=== PATIENT | female | born 1945 | race Caucasian/White ===

== ENCOUNTER → 2016-10-27 | Outpatient (CLI) | payer BC ==
[~2016-10-27] MED LIST: AMOX875T PO; ASCO10003 PO; ASPI81TA28 PO; CALC-354 PO; CHOL100010 PO; CHOL20009 PO; COEN1CAP PO; LPT/40 PO; METO25TA3 PO; MISCCAP80 PO; MULT-513 PO
[2016-10-27 11:03] LABS: ALT/SGPT 28 U/L (12-78); AST/SGOT 29 U/L (15-37); BLOOD UREA NITROGEN 13 mg/dl (7-18); BUN/CREATININE RATIO 16.3 (10-20); CARBON DIOXIDE 28 mmol/L (21-32); CHLORIDE 105 mmol/L (98-107); CHOLESTEROL 144 mg/dl (0-200); CREATININE 0.82 mg/dl (0.60-1.20); GLUCOSE 89 mg/dl (70-99); POTASSIUM 4.2 mmol/L (3.5-5.1); SODIUM 141 mmol/L (136-145); TRIGLYCERIDES 60 mg/dl (0-150); VERY LOW DENSITY LIPOPROT CALC 12 mg/dl
[2016-10-27 11:04] LABS: ALB/GLOB RATIO 0.9 (0.9-2); ALKALINE PHOSPHATASE 104 U/L (45-117); CHOLESTEROL/HDL RATIO 1.7; HDL CHOLESTEROL 86 mg/dl; LDL CHOLESTEROL CALCULATED 46 mg/dl
[2016-10-27 11:30] LABS: ESTIMATED AVERAGE GLUCOSE 117 mg/dl; HA1C FLAG Normal (Normal)
[2016-10-27 12:13] LABS: CALCIUM 9.4 mg/dl (8.5-10.1)
--- NOTE | 2016-11-01 12:25 | CODING QUERY MEDICAL NECESSITY ---
SUPPORTING DIAGNOSIS NEEDED A supporting diagnosis is required for the test/procedure performed on this patient in order for us to be reimbursed by the patient's insurance. Please provide a supporting diagnosis for the following test/procedure listed below next to the test name along with your signature. *If there is no additional diagnosis for this patient that would support the following test/procedure please document that below next to the test/procedure. Test(s)/Procedure(s) that require a supporting diagnosis: * HEMOGLOBIN A1C DIAGNOSIS: Provider Signature: Date: Thank you Marly Karimi [employer] Information Management Once completed, please kindly fax back to [phone] For questions please call [phone]
== END | disposition home or self-care (01) ==
LOC: C.LABBC 07:30
PROVIDERS: ATTEND Family Medicine
DX: K25.9 Gastric ulcer, unspecified as acute or chronic, without hemorrhage or perforation (principal); E78.00 Pure hypercholesterolemia, unspecified; K21.9 Gastro-esophageal reflux disease without esophagitis; I34.1 Nonrheumatic mitral (valve) prolapse; I25.10 Atherosclerotic heart disease of native coronary artery without angina pectoris; R73.03 Prediabetes

== ENCOUNTER → 2016-11-07 | Outpatient (CLI) | payer BC ==
[~2016-11-07] MED LIST changes: -AMOX875T PO; -CHOL20009 PO
--- NOTE | 2016-11-07 15:39 | MAMMOGRAPHY REPORT ---
BILATERAL DIGITAL SCREENING MAMMOGRAM WITH CAD: 11/07/2016 CLINICAL HISTORY: Routine screening. Patient has no complaints. TECHNIQUE: Bilateral CC and MLO views were obtained. Current study was also evaluated with a Compute r Aided Detection (CAD) system. COMPARISON: Comparison is made to exams dated: 11/01/2015 mammogram, 10/21/2014 mammogram, 10/14/2013 ma mmogram, 04/02/2012 mammogram, 01/31/2011 mammogram - [facility], and 02/02/2009. BREAST COMPOSITION: There are scattered areas of fibroglandular density in both breasts. FINDINGS: The parenchymal pattern is unchanged. No developing mass, architectural distortion or clus ter of suspicious microcalcifications is seen in either breast. IMPRESSION: ACR BI-RADS CATEGORY 2: BENIGN There is no mammographic evidence of malignancy. A 1 year screening mammogram is recommended. The pa tient will receive written notification of the results. Approximately 10% of breast cancers are not detected with mammography. A negative mammographic report should not delay biopsy if a clinically suggestive mass is present. Trudy Pereira M.D. ay/:11/07/2016 14:38:41 Manager Utilization Management: Ambreen Beltran RT(R)(M), [facility] letter sent: Normal 1/2 BI-RADS Code: ACR BI-RADS Category 2: Benign
== END | disposition home or self-care (01) ==
LOC: C.MAMM 11:17
PROVIDERS: ATTEND Obstetrics & Gynecology
DX: Z12.31 Encounter for screening mammogram for malignant neoplasm of breast (principal)

== ENCOUNTER → 2016-11-16 | Outpatient (CLI) | payer BC ==
[~2016-11-16] MED LIST changes: +AMOX875T PO; +CHOL20009 PO
== END | disposition home or self-care (01) ==
LOC: C.PAPS 09:44
PROVIDERS: ATTEND Obstetrics & Gynecology
DX: Z01.419 Encounter for gynecological examination (general) (routine) without abnormal findings (principal)

== ENCOUNTER 2017-01-15 13:14 | Emergency (ER) | payer BC ==
[~2017-01-15] VITALS: Ht 157.5 cm; Wt 62.7 kg
[~2017-01-15 13:14] MED LIST changes: -AMOX875T PO; -CHOL20009 PO
[2017-01-15] MEDS ORDERED: CHOL20009 PO (13:24)
[2017-01-15 13:30] VITALS: TEMP 36.6; Ht 157.5 cm; Wt 62.7 kg
[2017-01-15] MEDS ORDERED: AMOX875T PO (13:55)
--- NOTE | 2017-01-15 13:57 | EMERGENCY ROOM VISIT NOTE ---
History First contact with patient: 13:35 Chief Complaint: BITE Stated Complaint: DOG BITE- LEFT HAND History of Present Illness The patient is a 71 year old female who presents to the Emergency Room with complaints of a dog bite on her left hand. The patient states that she was taking a walk and a stranger's dog bit her on the left hand. She is unsure if the dog's rabies vaccinations are up-to-date, but states that the dog was acting normally and was not aggressive or acting unusually. She rates her discomfort a 4/10. He believes her tetanus status is up-to-date. She denies any numbness or weakness of the hand. Review of Systems A complete 10 point review of systems was reviewed with the patient with pertinent positives and negatives as per history of present illness. All else were negative. Social History Smoking Status: Never Smoker Current/Historical Medications Scheduled Amoxicillin & Pot Clavulanate (Augmentin 875-125 mg), 1 TAB PO BID Ascorbic Acid (Vitamin C), 1 TAB PO DAILY Aspirin (Aspirin Ec), 81 MG PO DAILY Atorvastatin (Lipitor), 40 MG PO DAILY Calcium Carbonate-Cholecalcife (Caltrate 600+D), 1 TAB PO DAILY Cholecalciferol (Vitamin D), 2,000 UNITS PO DAILY Metoprolol Succinate (Toprol Xl), 12.5 MG PO DAILY Multivitamins/Minerals (Mvi With Minerals), 1 TAB PO DAILY Probiotic Product (Probiotic), 1 CAP PO DAILY Miscellaneous Medications Coenzyme Q10 (Ubidecarenone) (Co Q10), 0.5 CAP PO Physical Exam Vital Signs Date Time Temp Pulse Resp B/P (MAP) Pulse Ox O2 Delivery O2 Flow Rate FiO2 01/15/17 14:21 68 18 120/75 97 01/15/17 13:30 36.6 74 18 14/73 96 Room Air Physical Exam VITALS: Vitals are noted on the nurse's note and reviewed by myself. Vital signs stable. GENERAL: This is a 71-year-old female, in no acute distress, nondiaphoretic, well-developed well-nourished. SKIN: There is a superficial flap-like laceration to the dorsal aspect of the left hand, just proximal to the fifth MCP. There is no active bleeding. There is no significant surrounding ecchymosis. MUSCULOSKELETAL: Full range of motion of the hand. [employer] strength 5/5. NEURO: Patient was alert and oriented to person place and time. Normal sensation to light and sharp touch. Medical Decision & Procedures Medications Administered Medications (Trade) Dose Ordered Sig/[place] Route Start Time Stop Time Status Last Admin Dose Admin Amoxicillin/ Clavulanate Potassium (Augmentin 875MG Home Pack) 1 homepack UD ONCE PO 01/15/17 14:00 01/15/17 14:01 DC 01/15/17 14:16 1 HOMEPACK Medical Decision The patient was evaluated as above. She sustained a dog bite to the left hand. She believes that her tetanus shot is up-to-date. She will call her primary care provider tomorrow to confirm this. The patient is not concerned about rabies exposure. Benefit/risk of rabies vaccinations were discussed with the patient and she declined at this time. She will be placed on Augmentin to prevent infection. Bacitracin and a bandage were applied to the wound. Conservative measures were discussed with the patient. She was encouraged to return here for any evidence of infection. She verbalized understanding of my assessment and treatment plan and was discharged home in good condition. The patient was independently evaluated by Dr. Mancilla, ED attending physician , who agreed with my assessment and treatment plan. Medication Reconcilliation Current Medication List: was personally reviewed by me Blood Pressure Screening Patient's blood pressure: Normal blood pressure Impression Primary Impression: Dog bite Departure Information Dispostion Home / Self-Care Condition GOOD Prescriptions Amoxicillin & Pot Clavulanate (Augmentin 875-125 mg) 1 Tab Tab 1 TAB PO BID for 7 Days, #14 TAB Prov: Marlys Batista ., GUTIERREZ 01/15/17 Referrals Lesley Faith DO (PCP) Patient Instructions My [facility] Additional Instructions You were prescribed Augmentin to be taken twice daily as prescribed. This is an antibiotic. All antibiotics have the potential to cause diarrhea. Stop this medication and contact a medical provider if you were to develop any significant adverse side effects including: wheezing, shortness of breath, passing out, vomiting, or a diffuse rash. Always take antibiotics as directed and COMPLETE the ENTIRE course regardless of the improvement of your symptoms. Proper wound care is essential for adequate wound healing and infection prevention. You can shower and clean the wound with soap and water. Do not scour over the wound, pat dry with a towel. Do not submerse the wound (i.e. bathe or dish wash) until the wound has fully healed. You can use an antibiotic ointment with a dressing over the wound for the next 3-4 days. After this time you may leave the wound dry and open to the air. For pain control, you can use the following [id number] medicines (if >12 yo): - Regular strength (325mg/tab) Tylenol (acetaminophen) 2 tabs every 4-6 hours as needed. Do not exceed 12 tablets in a 24 hour period. Avoid taking more than 4 grams (4000 mg) of Tylenol per day. This includes any other sources of acetaminophen you may take on a regular basis. - Regular strength (200 mg/tab) Advil (ibuprofen) 1-2 tabs every 4-6 hours as needed. Do not exceed a dose of 3200 mg per day. Contact your PCP to make sure your tetanus vaccination is up to date. Return to the emergency department for any signs of infection including worsening redness, worsening swelling, puslike drainage from the wound or fevers. Problem Qualifiers Primary Impression: Dog bite Encounter type: initial encounter Qualified Codes: W54.0XXA - Bitten by dog , initial encounter
[2017-01-15] MEDS ORDERED: AMOXICIL/CLAVU 875MG HOME PACK PO ONE (14:00)
--- NOTE | 2017-01-15 14:00 | EMERGENCY ROOM VISIT NOTE ---
ED Visit Note First contact with patient: 13:35 I have seen and examined this patient with Marlys Batista and generally agree with the treatment plan as discussed. Current/Historical Medications Scheduled Amoxicillin & Pot Clavulanate (Augmentin 875-125 mg), 1 TAB PO BID Ascorbic Acid (Vitamin C), 1 TAB PO DAILY Aspirin (Aspirin Ec), 81 MG PO DAILY Atorvastatin (Lipitor), 40 MG PO DAILY Calcium Carbonate-Cholecalcife (Caltrate 600+D), 1 TAB PO DAILY Cholecalciferol (Vitamin D), 2,000 UNITS PO DAILY Metoprolol Succinate (Toprol Xl), 12.5 MG PO DAILY Multivitamins/Minerals (Mvi With Minerals), 1 TAB PO DAILY Probiotic Product (Probiotic), 1 CAP PO DAILY Miscellaneous Medications Coenzyme Q10 (Ubidecarenone) (Co Q10), 0.5 CAP PO Allergies Coded Allergies: Epinephrine (Verified Allergy, Mild, 01/15/17) Vital Signs Date Time Temp Pulse Resp B/P (MAP) Pulse Ox O2 Delivery O2 Flow Rate FiO2 01/15/17 13:30 36.6 74 18 14/73 96 Room Air Departure Information Dispostion Home / Self-Care Condition GOOD Prescriptions Amoxicillin & Pot Clavulanate (Augmentin 875-125 mg) 1 Tab Tab 1 TAB PO BID for 7 Days, #14 TAB Prov: Marlys Batista ., GUTIERREZ 01/15/17 Referrals Lesley Faith DO (PCP) Patient Instructions My [facility] Additional Instructions You were prescribed Augmentin to be taken twice daily as prescribed. This is an antibiotic. All antibiotics have the potential to cause diarrhea. Stop this medication and contact a medical provider if you were to develop any significant adverse side effects including: wheezing, shortness of breath, passing out, vomiting, or a diffuse rash. Always take antibiotics as directed and COMPLETE the ENTIRE course regardless of the improvement of your symptoms. Proper wound care is essential for adequate wound healing and infection prevention. You can shower and clean the wound with soap and water. Do not scour over the wound, pat dry with a towel. Do not submerse the wound (i.e. bathe or dish wash) until the wound has fully healed. You can use an antibiotic ointment with a dressing over the wound for the next 3-4 days. After this time you may leave the wound dry and open to the air. For pain control, you can use the following slee-tzu-naoorex medicines (if >12 yo): - Regular strength (325mg/tab) Tylenol (acetaminophen) 2 tabs every 4-6 hours as needed. Do not exceed 12 tablets in a 24 hour period. Avoid taking more than 4 grams (4000 mg) of Tylenol per day. This includes any other sources of acetaminophen you may take on a regular basis. - Regular strength (200 mg/tab) Advil (ibuprofen) 1-2 tabs every 4-6 hours as needed. Do not exceed a dose of 3200 mg per day. Contact your PCP to make sure your tetanus vaccination is up to date. Return to the emergency department for any signs of infection including worsening redness, worsening swelling, puslike drainage from the wound or fevers.
[2017-01-15 14:21] VITALS: BP 120/75; PULSE 68; O2SAT 97
== END 2017-01-15 14:21 | disposition home or self-care (01) ==
LOC: C.EDB 13:16 → C.EDD 14:21
DX: S61.452A Open bite of left hand, initial encounter (principal); W54.0XXA Bitten by dog, initial encounter; Y92.89 Other specified places as the place of occurrence of the external cause; Z79.82 Long term (current) use of aspirin; Z79.899 Other long term (current) drug therapy

== ENCOUNTER → 2017-04-16 | Outpatient (CLI) | payer BC ==
[~2017-04-16] MED LIST changes: -CHOL100010 PO; +CHOL20009 PO
[2017-04-16 11:19] LABS: BASO ABS # 0.05 K/uL (0-0.2); COMPLETE YES; EOS % 1.9 %; HEMATOCRIT 44.7 % (37-47); IG% 0.2 %; LYMPH % 48.7 %; LYMPH ABS # 2.53 K/uL (1.2-3.4); MEAN CELL VOLUME 102.3 fL (80-100); MEAN CORPUSCULAR HEMOGLOBIN 33.2 pg (25-34); MEAN CORPUSCULAR HGB CONC 32.4 g/dl (32-36); MEAN PLATELET VOLUME 11.7 fL (7.4-10.4); MONO % 8.5 %; NEUT % 39.7 %; PLATELET COUNT 203 K/uL (130-400); RED BLOOD COUNT 4.37 M/uL (4.2-5.4); WHITE BLOOD COUNT 5.19 K/uL (4.8-10.8)
[2017-04-16 11:42] LABS: ALT/SGPT 27 U/L (12-78); BLOOD UREA NITROGEN 19 mg/dl (7-18); BUN/CREATININE RATIO 21.2 (10-20); CALCIUM 9.4 mg/dl (8.5-10.1); CARBON DIOXIDE 30 mmol/L (21-32); CHLORIDE 102 mmol/L (98-107); CHOLESTEROL 189 mg/dl (0-200); CREATININE 0.91 mg/dl (0.60-1.20); GLUCOSE 94 mg/dl (70-99); POTASSIUM 3.8 mmol/L (3.5-5.1); SODIUM 139 mmol/L (136-145)
[2017-04-16 11:45] LABS: ALB/GLOB RATIO 1.1 (0.9-2); ALKALINE PHOSPHATASE 110 U/L (45-117); AST/SGOT 24 U/L (15-37); CHOLESTEROL/HDL RATIO 2.1; HDL CHOLESTEROL 88 mg/dl; LDL CHOLESTEROL CALCULATED 83 mg/dl; TRIGLYCERIDES 91 mg/dl (0-150); VERY LOW DENSITY LIPOPROT CALC 18 mg/dl
[2017-04-16 12:08] LABS: RATIO 7.4 mcg/mg (0-30.0)
[2017-04-16 12:52] LABS: ESTIMATED AVERAGE GLUCOSE 117 mg/dl; HA1C FLAG Normal (Normal)
== END | disposition home or self-care (01) ==
LOC: C.LABBC 08:14
PROVIDERS: ATTEND Nurse Practitioner Family
DX: E78.00 Pure hypercholesterolemia, unspecified (principal); K21.9 Gastro-esophageal reflux disease without esophagitis; R73.03 Prediabetes; I25.10 Atherosclerotic heart disease of native coronary artery without angina pectoris

== ENCOUNTER 2021-01-04 10:16 | Inpatient (IN) ==
[2021-01-04] MEDS ORDERED: SODIUM CHLORIDE 0.9% 1000ML 1,000 ML IV ONE (10:48)
[2021-01-04] MEDS ORDERED: ONDANSETRON INJ 2 MG/ML 2 ML VIAL IV STA (10:48)
--- NOTE | 2021-01-04 10:52 | Emergency Department Note ---
Impression & Plan Diverticulitis, Abdominal pain, Abscess ED Provider Note NAME: BERT RICHMOND AGE: 75 SEX: F : 1945 ARRIVES VIA: Walk-In INFORMANT: Patient ED PROVIDER(S): Jarod Martinez DO CHIEF COMPLAINT: abdominal pain HPI: Patient is a 75-year-old female who presents the ER for periumbilical abdominal pain. Associate with this has been diarrhea. Symptoms started about 4 days ago. She is keeping down liquids but is having profuse diarrhea. Pain is about a 3 out of 10. Initially started in the lower pelvic region and now is periumbilical. She has not been around any body that has been sick recently. She has had 2 episodes of diarrhea today as it is improved. Normally she goes about 5-10 times. She denies any dysuria, urgency, or frequency. Pain is normally infraumbilically but recently moved up to be periumbilically. She discussed with her PCP and was referred in for further evaluation. ROS: See above HPI for pertinent positives & negatives. A total of 10 systems reviewed and were otherwise negative. PAST MEDICAL HISTORY:See Below PAST SURGICAL HISTORY:See Below FAMILY HISTORY:See Below SOCIAL HISTORY:See Below HOME MEDICATIONS:See Below ALLERGIES:See Below VITALS:See Below PHYSICAL EXAMINATION: GENERAL: Sitting up in bed, alert, well appearing, well nourished, no distress, non-toxic EYE EXAM: normal conjunctiva. PERRL and EOM's grossly intact. OROPHARYNX: mask in place LUNGS: Clear to auscultation. Normal chest wall mechanics HEART: no murmurs, S1 normal and S2 normal ABDOMEN: abdomen soft, mild tenderness periumbilically, normo-active bowel sounds, no masses, no rebound or guarding. UPPER EXTREMITIES: upper extremities are grossly normal. LOWER EXTREMITIES: No pitting edema. NEURO EXAM: Normal sensorium, cranial nerves II-XII grossly intact, normal speech, no gross weakness of arms, no gross weakness of legs. MEDICAL DECISION MAKING: Patient is a 75-year-old female who presents the ER for abdominal pain for the past 4 days. IV was established blood work was obtained. Labs show mild l eukocytosis 11.9 thousand. No significant anemia. BMP with LFTs bilirubin and lipase was unremarkable. UA was contaminated with multiple epithelial cells. Covid was negative. CT abdomen pelvis shows severe diverticulitis with intramural abscess and some peritonitis likely with a small amount of fluid. No perforation. Discussed with Madina from surgery and admitted to the hospitalist for further work-up Dr. Hammonds. Patient was given fluids and Zosyn while in the ER. Triage Nursing notes reviewed. Limited review of prior medical records performed Vital Signs: reviewed and remarkable for no significant abnormalities Differential diagnosis: Differential diagnoses includes but is not limited to gastritis, peptic ulcer disease, GERD, gallbladder disease, pancreatitis, small bowel obstruction, acute coronary syndrome, pericarditis, ischemic bowel, irritable bowel disease, irritable bowel syndrome, appendicitis, diverticulitis, malignancy, hernia, urinary tract infection, torsion, /ectopic (if female), perforation, trauma, infectious. ER treatment provided: See below Diagnostics interpreted by me: ECG: none Cardiac Monitoring: An order was placed for continuous cardiac monitoring. The monitor shows a rate of 72 with sinus rhythm. Laboratory studies: As stated above and show below. Imaging studies: CT abdomen pelvis as discussed above Consultation(s): Consultations as discussed above both Dr. Olmos service CLARI Luke and Dr. Hammonds from the hospital service Procedures: none Critical Care: None Past Med/Surg History Medical History (Updated 01/04/21 @ 16:11 by Jarod Martinez DO) Adhesions of flexor and extensor tendons Left foot flexor digiti quinti Atrophic urethritis Basal cell carcinoma Cardiomyopathy, nonischemic Coronary artery disease Eustachian tube dysfunction Gastric ulcer Gastro-esophageal reflux Hypercholesterolemia Mitral valve prolapse MRSA (methicillin resistant Staphylococcus aureus) Past myocardial infarction PAT (paroxysmal atrial tachycardia) Peptic ulcer Postmenopausal atrophic vaginitis Postmenopausal osteoporosis Prediabetes Premature ventricular contractions Seborrheic keratosis Situational anxiety Solar lentigo Squamous cell carcinoma skin Surgical History History of tonsillectomy and adenoidectomy Family History Father , age 54 Myocardial infarction Cardiac disorder Stroke Diabetes Stomach cancer Mother Alzheimer disease Cardiac disorder Stroke Diabetes Breast cancer Stomach cancer Grandfather (Maternal) Cardiac disorder Stroke Stomach cancer Grandmother (Paternal) Cardiac disorder Stroke Stomach cancer Grandfather (Paternal) Cardiac disorder Stroke Denies family history of Ovarian cancer Prostate cancer Colorectal cancer Social History Smoking Status: Former smoker Age Started Using Tobacco: 16; Age Quit Using Tobacco: 29; packs per day: 0.5; Number of Years Since Quit: 30; Second Hand Exposure: No; Hx Alcohol Use: Yes Alcohol type: wine Hx Substance Use: No Preferred Language: Lao Visual Impairment: No Limitations Hearing Ability: Normal marital status: Current Living Situation: Spouse current occupational status: retired Feels Safe at Home: Yes Childhood Exposure to Second-Hand Smoke: Yes Dental Care, Regularly: Yes Physical Activity Frequency: 3-4 Times per Week Seatbelt Use: always Sunscreen Use: Yes Allergies Allergies Allergy/AdvReac Type Severity Reaction Status Date / Time epinephrine Allergy Mild Verified 01/04/21 13:06 lidocaine Allergy Verified 01/04/21 13:06 Home Meds Home Medications Medication Instructions Recorded Confirmed aspirin 81 mg tablet,delayed 81 mg PO HS #30 tab 02/02/19 01/04/21 release (Aspirin Low Dose) atorvastatin 20 mg tablet (Lipitor) 20 mg PO HS 01/04/21 01/04/21 budesonide 0.5 mg/2 mL suspension 0.5 mg INHALATION UD 01/04/21 01/04/21 for nebulization (Pulmicort) cholecalciferol (vitamin D3) 50 50 mcg PO BID 01/04/21 01/04/21 mcg (2,000 unit) capsule (Vitamin D3) fluvoxamine 50 mg tablet 50 mg PO BID 01/04/21 01/04/21 ivermectin 3 mg tablet (Stromectol) 12 mg PO WK 01/04/21 01/04/21 metoprolol succinate 50 mg 50 mg PO HS 01/04/21 01/04/21 tablet,extended release 24 hr (Toprol XL) multivitamin (Super Multivitamin) 1 tab PO QAM 01/04/21 01/04/21 nitroglycerin 0.4 mg sublingual 0.4 mg SUBLINGUAL UD 01/04/21 01/04/21 tablet (Nitrostat) Results & Data (ED) Vital Signs Vital Signs - 24 hr 01/04/21 10:37 01/04/21 10:40 01/04/21 11:02 Temperature 36.1 C L Temperature Source Temporal Artery Scan Pulse Rate 86 76 73 Pulse Rate [Apical] Pulse Rate from SpO2 Sensor 74 Pulse Rhythm Regular Regular Pulse Rhythm [Apical] Pulse Strength Normal Respiratory Rate 20 15 20 Respiratory Effort / Characteristics Non-Labored Spontaneous Respiratory Depth Normal Respiratory Pattern Regular Blood Pressure 140/80 161/82 H Blood Pressure [Left Arm] Blood Pressure Mean 100 108 Blood Pressure Mean [Left Arm] Blood Pressure Position Sitting Pulse Oximetry 97 96 98 Oxygen Delivery Method Room Air Room Air Sepsis Recent Fever Within 48 Hours No Sepsis New/Unexplained Change in Mental Status N/A Sepsis Action Taken by Nursing No Action Required 01/04/21 11:27 Temperature Temperature Source Pulse Rate Pulse Rate [Apical] 75 Pulse Rate from SpO2 Sensor Pulse Rhythm Pulse Rhythm [Apical] Regular Pulse Strength Respiratory Rate 16 Respiratory Effort / Characteristics Non-Labored Respiratory Depth Normal Respiratory Pattern Blood Pressure Blood Pressure [Left Arm] 161/82 H Blood Pressure Mean Blood Pressure Mean [Left Arm] 108 Blood Pressure Position Pulse Oximetry 97 Oxygen Delivery Method Room Air Sepsis Recent Fever Within 48 Hours Sepsis New/Unexplained Change in Mental Status Sepsis Action Taken by Nursing Laboratory Data Result diagrams: 01/04/21 11:15 01/04/21 11:15 Lab Results 01/04/21 01/04/21 01/04/21 Range/Units 11:12 11:15 11:15 WBC 11.97 H (4.8-10.8) K/uL RBC 4.28 (4.2-5.4) M/uL Hgb 14.7 (12.0-16.0) g/dL Hct 43.3 (37-47) % MCV 101.2 H (80-100) fL MCH 34.3 H (25-34) pg MCHC 33.9 (32-36) g/dL RDW Std Deviation 46.3 (36.4-46.3) fL RDW Coeff of Rita 12.5 (11.5-14.5) % Plt Count 219 (130-400) K/uL MPV 11.4 H (7.4-10.4) fL Immature Gran % (Auto) 0.3 % Neut % (Auto) 79.8 % Lymph % (Auto) 12.5 % [place] % (Auto) 7.0 % Eos % (Auto) 0.1 % Baso % (Auto) 0.3 % Neut # (Auto) 9.56 H (1.4-6.5) K/uL Lymph # (Auto) 1.50 (1.2-3.4) K/uL [place] # (Auto) 0.84 H (0.11-0.59) K/uL Eos # (Auto) 0.01 (0-0.5) K/uL Baso # (Auto) 0.03 (0-0.2) K/uL Immature Gran # (Auto) 0.03 H (0.00-0.02) K/uL Sodium 138 (136-145) mmol/L Potassium 3.6 (3.5-5.1) mmol/L Chloride 104 (98-107) mmol/L Carbon Dioxide 28 (21-32) mmol/L Anion Gap 6.0 (3-11) BUN 9 (7-18) mg/dl Creatinine 0.72 (0.6-1.2) mg/dl Est Cr Clr Drug Dosing 58.3 ml/min Est GFR ( Amer) 94.3 ml/min Est GFR (Non-Af Amer) 81.3 ml/min BUN/Creatinine Ratio 12.7 (10-20) Glucose 120 H (70-99) mg/dl Calcium 9.7 (8.5-10.1) mg/dl Total Bilirubin 0.7 (0.2-1) mg/dl AST 28 (15-37) U/L ALT 30 (12-78) U/L Alkaline Phosphatase 104 (45-117) U/L Total Protein 8.5 H (6.4-8.2) gm/dl Albumin 3.8 (3.4-5.0) gm/dl Globulin 4.7 H (2.5-4.0) gm/dl Albumin/Globulin Ratio 0.8 L (0.9-2) Lipase 210 (73-393) U/L Urine Color Yellow Urine Appearance Clear (Clear) Urine pH 6.5 (4.5-7.5) Ur Specific [place] 1.017 (1.000-1.030) Urine Protein Negative (Negative) Urine Glucose (UA) Negative (Negative) Urine Ketones Trace H (Negative) Urine Blood Trace H (Negative) Urine Nitrite Negative (Negative) Urine Bilirubin Negative (Negative) Urine Urobilinogen Negative (Negative) Ur Leukocyte Esterase Trace H (Negative) Urine WBC (Auto) 1-5 (0-5) /hpf Urine RBC (Auto) 5-10 H (0-4) /hpf U Hyaline Cast (Auto) 1-5 (0-5) /lpf U Epithel Cells (Auto) >30 H (0-5) /lpf Urine Bacteria (Auto) Negative (Negative) COVID-19 Eval Order SARS-CoV-2 (PCR) (Negative) 01/04/21 01/04/21 Range/Units 12:00 12:00 WBC (4.8-10.8) K/uL RBC (4.2-5.4) M/uL Hgb (12.0-16.0) g/dL Hct (37-47) % MCV (80-100) fL MCH (25-34) pg MCHC (32-36) g/dL RDW Std Deviation (36.4-46.3) fL RDW Coeff of Rita (11.5-14.5) % Plt Count (130-400) K/uL MPV (7.4-10.4) fL Immature Gran % (Auto) % Neut % (Auto) % Lymph % (Auto) % [place] % (Auto) % Eos % (Auto) % Baso % (Auto) % Neut # (Auto) (1.4-6.5) K/uL Lymph # (Auto) (1.2-3.4) K/uL [place] # (Auto) (0.11-0.59) K/uL Eos # (Auto) (0-0.5) K/uL Baso # (Auto) (0-0.2) K/uL Immature Gran # (Auto) (0.00-0.02) K/uL Sodium (136-145) mmol/L Potassium (3.5-5.1) mmol/L Chloride (98-107) mmol/L Carbon Dioxide (21-32) mmol/L Anion Gap (3-11) BUN (7-18) mg/dl Creatinine (0.6-1.2) mg/dl Est Cr Clr Drug Dosing ml/min Est GFR ( Amer) ml/min Est GFR (Non-Af Amer) ml/min BUN/Creatinine Ratio (10-20) Glucose (70-99) mg/dl Calcium (8.5-10.1) mg/dl Total Bilirubin (0.2-1) mg/dl AST (15-37) U/L ALT (12-78) U/L Alkaline Phosphatase (45-117) U/L Total Protein (6.4-8.2) gm/dl Albumin (3.4-5.0) gm/dl Globulin (2.5-4.0) gm/dl Albumin/Globulin Ratio (0.9-2) Lipase (73-393) U/L Urine Color Urine Appearance (Clear) Urine pH (4.5-7.5) Ur Specific [place] (1.000-1.030) Urine Protein (Negative) Urine Glucose (UA) (Negative) Urine Ketones (Negative) Urine Blood (Negative) Urine Nitrite (Negative) Urine Bilirubin (Negative) Urine Urobilinogen (Negative) Ur Leukocyte Esterase (Negative) Urine WBC (Auto) (0-5) /hpf Urine RBC (Auto) (0-4) /hpf U Hyaline Cast (Auto) (0-5) /lpf U Epithel Cells (Auto) (0-5) /lpf Urine Bacteria (Auto) (Negative) COVID-19 Eval Order Covid19 at [facility] SARS-CoV-2 (PCR) NEGATIVE (Negative) Administered Medications Acetaminophen (Acetaminophen 325 Mg Tab) 650 mg PO Q6 PRN PRN Reason: pain/fever Stop: 02/03/21 14:44 Last Admin: 01/04/21 14:55 Dose: 650 mg Documented by: [id number] Discontinued Medications Sodium Chloride (Nss 1000ml) 1,000 mls @ 999 mls/hr IV .Q1H1M ONE Stop: 01/04/21 11:48 Last Infusion: 01/04/21 13:32 Dose: 0 mls/hr Documented by: [id number] Admin: 01/04/21 11:26 Dose: 999 mls/hr Documented by: [id number] Piperacillin Sod/Tazobactam Sod (Zosyn) 4.5 gm in 120 mls @ 240 mls/hr IV NOW ONE Stop: 01/04/21 13:20 Last Infusion: 01/04/21 14:23 Dose: 0 mls/hr Documented by: [id number] Admin: 01/04/21 13:20 Dose: 240 mls/hr Documented by: [id number] Ioversol (Optiray 320 100ml) 94 ml IV ONCE ONE Stop: 01/04/21 12:21 Last Admin: 01/04/21 12:20 Dose: 94 ml Documented by: [id number] Ondansetron HCl (Ondansetron Inj 2 Mg/Ml 2 Ml Vial) 4 mg IV NOW STA Stop: 01/04/21 10:49 Last Admin: 01/04/21 11:26 Dose: 4 mg Documented by: [id number] Imaging Data Radiologist's Impression: Abdomen/Pelvis CT 01/04/21 10:48 CT SCAN OF THE ABDOMEN AND PELVIS WITH IV CONTRAST CLINICAL HISTORY: Generalized/umbilical abdominal pain. COMPARISON STUDY: Abdominal CT dated 10/19/2006. TECHNIQUE: Following the IV administration of 94 cc of Optiray 320, CT scan of the abdomen and pelvis is performed from the lung bases to the proximal femora. Images are reviewed in the axial, sagittal, and coronal planes. IV contrast was administered without complication. A dose lowering technique was utilized adhering to the principles of ALARA. CT DOSE: 528.71 mGycm FINDINGS: Lung bases: The heart is normal in size and without pericardial effusion. There are small bilateral fat-containing Bochdalek hernias. The lung bases are otherwise clear. Liver: The contrast-enhanced liver is normal in size, contour, and attenuation. There is no intrahepatic biliary ductal dilatation. The hepatic veins and portal veins are patent. Hepatic cysts measure up to 2.4 cm have been present dating back to 2006. Gallbladder: Unremarkable. Spleen: Normal in size and attenuation. Pancreas: Unremarkable. Adrenal glands: Unremarkable. Kidneys: The contrast enhanced kidneys are normal in size and without hydronephrosis. The kidneys enhance symmetrically. Scattered subcentimeter cortical hypodensities likely represent cysts but are too small for definitive characterization. Abdominal vasculature: The abdominal aorta is normal in course and caliber no ting moderate atherosclerotic calcification. Bowel: There is moderate to advanced sigmoid diverticulosis. There is wall thickening with pericolonic inflammation and fluid involving the proximal sigmoid consistent with acute diverticulitis. A small intramural abscess on imag e #275 measures up to 12 mm. No bowel obstruction is seen. The appendix is well-visualized and normal. Peritoneum: There is trace fluid in the paracolic gutters and pelvis. No intraperitoneal free air is identified. There is a small fat-containing umbilical hernia. Infiltration throughout the mesentery. Lymphadenopathy: None. Pelvic viscera: The bladder, uterus, and adnexa are normal as visualized. Skeletal structures: The skeletal structures are osteopenic. There is lumbosacral spondylosis and scoliosis. Sclerotic change is noted in the pubic symphysis. No lytic or blastic lesions are seen. IMPRESSION: 1. Findings are consistent with severe acute diverticulitis of the sigmoid colon. 2. No intraperitoneal free air is identified. 3. A 12 mm intramural abscess is noted within the wall of the sigmoid. 4. Infiltration throughout the mesentery may represent peritonitis. Trace free fluid is noted in the paracolic gutters and pelvis. 5. Additional findings as above. ACT 112: Negative or not required by law. Electronically signed by: Ye Hugo M.D. 01/04/2021 12:44 PM Discharge Plan Visit Data Chief Complaint: Abdominal Pain Stated Complaint: BOWEL ISSUES ED Provider: Jarod Martienz Discharge Problem: Diverticulitis, Abdominal pain, Abscess Patient Disposition: Admitted As Inpatient Discharge Instructions Interventions: ED Discharge Assessment Last Done: 01/04/21 15:41 Discharge Problem: Abdominal pain Qualifiers: Abdominal location: unspecified location Qualified Code(s): R10.9 - Unspecified abdominal pain
[2021-01-04 11:31] LABS: Appearance Urine Clear (Clear); Bacteria Urine Automated Negative (Negative); Bilirubin Urine Negative (Negative); Blood Urine Trace (Negative); Color Urine Yellow; Epithelial Cell Urine Auto >30 /lpf (0-5); Glucose Urine UA Negative (Negative); Ketones Urine Trace (Negative); Leukocyte Esterase Urine Trace (Negative); Nitrite Urine Negative (Negative); Protein Urine Negative (Negative); Specific Gravity Urine 1.017 (1.000-1.030); Urobilinogen Urine Negative (Negative); pH Urine 6.5 (4.5-7.5)
[2021-01-04 11:31] LABS: Basophils # (auto) 0.03 K/uL (0-0.2); Basophils % (auto) 0.3 %; Eosinophils # (auto) 0.01 K/uL (0-0.5); Eosinophils % (auto) 0.1 %; Hematocrit (blood only) 43.3 % (37-47); Hemoglobin 14.7 g/dL (12.0-16.0); Immature Granulocytes # (auto) 0.03 K/uL (0.00-0.02); Immature Granulocytes % (auto) 0.3 %; Lymphocytes % (auto) 12.5 %; Mean Corpuscular Hemoglobin 34.3 pg (25-34); Mean Corpuscular Hgb Conc 33.9 g/dL (32-36); Mean Corpuscular Volume 101.2 fL (80-100); Mean Platelet Volume 11.4 fL (7.4-10.4); Monocytes # (auto) 0.84 K/uL (0.11-0.59); Neutrophils # (auto) 9.56 K/uL (1.4-6.5); Neutrophils % (auto) 79.8 %; Platelet Count 219 K/uL (130-400); RDW Coefficient of Variation 12.5 % (11.5-14.5); RDW Standard Deviation 46.3 fL (36.4-46.3); Red Blood Count 4.28 M/uL (4.2-5.4); White Blood Count 11.97 K/uL (4.8-10.8)
[2021-01-04 11:53] LABS: Albumin Level 3.8 gm/dl (3.4-5.0); BUN Creatinine Ratio 12.7 (10-20); Calcium 9.7 mg/dl (8.5-10.1); Creatinine Clr Calc Pharmacy 58.3 ml/min; Est GFR (African American) 94.3 ml/min; Est GFR (Non-African American) 81.3 ml/min; Potassium 3.6 mmol/L (3.5-5.1)
[2021-01-04 11:56] LABS: Albumin Globulin Ratio 0.8 (0.9-2); Bilirubin,Total 0.7 mg/dl (0.2-1); Globulin 4.7 gm/dl (2.5-4.0); Total Protein 8.5 gm/dl (6.4-8.2)
[2021-01-04] MEDS ORDERED: OPTIRAY 320 100ml IV ONE (12:20)
--- NOTE | 2021-01-04 12:46 | CT Scan Report ---
CT SCAN OF THE ABDOMEN AND PELVIS WITH IV CONTRAST CLINICAL HISTORY: Generalized/umbilical abdominal pain. COMPARISON STUDY: Abdominal CT dated 10/19/2006. TECHNIQUE: Following the IV administration of 94 cc of Optiray 320, CT scan of the abdomen and pelvi s is performed from the lung bases to the proximal femora. Images are reviewed in the axial, sagittal , and coronal planes. IV contrast was administered without complication. A dose lowering technique wa s utilized adhering to the principles of ALARA. CT DOSE: 528.71 mGycm FINDINGS: Lung bases: The heart is normal in size and without pericardial effusion. There are small bilateral f at-containing Bochdalek hernias. The lung bases are otherwise clear. Liver: The contrast-enhanced liver is normal in size, contour, and attenuation. There is no intrahepa tic biliary ductal dilatation. The hepatic veins and portal veins are patent. Hepatic cysts measure u p to 2.4 cm have been present dating back to 2006. Gallbladder: Unremarkable. Spleen: Normal in size and attenuation. Pancreas: Unremarkable. Adrenal glands: Unremarkable. Kidneys: The contrast enhanced kidneys are normal in size and without hydronephrosis. The kidneys enh ance symmetrically. Scattered subcentimeter cortical hypodensities likely represent cysts but are too small for definitive characterization. Abdominal vasculature: The abdominal aorta is normal in course and caliber noting moderate atheroscle rotic calcification. Bowel: There is moderate to advanced sigmoid diverticulosis. There is wall thickening with pericoloni c inflammation and fluid involving the proximal sigmoid consistent with acute diverticulitis. A small intramural abscess on image #275 measures up to 12 mm. No bowel obstruction is seen. The appendix is well-visualized and normal. Peritoneum: There is trace fluid in the paracolic gutters and pelvis. No intraperitoneal free air is identified. There is a small fat-containing umbilical hernia. Infiltration throughout the mesentery. Lymphadenopathy: None. Pelvic viscera: The bladder, uterus, and adnexa are normal as visualized. Skeletal structures: The skeletal structures are osteopenic. There is lumbosacral spondylosis and sco liosis. Sclerotic change is noted in the pubic symphysis. No lytic or blastic lesions are seen. IMPRESSION: 1. Findings are consistent with severe acute diverticulitis of the sigmoid colon. 2. No intraperitoneal free air is identified. 3. A 12 mm intramural abscess is noted within the wall of the sigmoid. 4. Infiltration throughout the mesentery may represent peritonitis. Trace free fluid is noted in the paracolic gutters and pelvis. 5. Additional findings as above. ACT 112: Negative or not required by law. Electronically signed by: Ye Hugo M.D. 01/04/2021 12:44 PM
[2021-01-04] MEDS ORDERED: PIPERACILL/TAZOBAC CONSULT ACTIVE PRN ×2 (12:51→16:08)
[2021-01-04] MEDS ORDERED: PIPERACILLIN/TAZOBACTAM 4.5 GM/120 ML BAG IV ONE (12:51)
--- NOTE | 2021-01-04 14:32 | Surgery Consultation ---
Date of Consultation January 04, 2021 Assessment & Plan (1) Diverticulitis of intestine with abscess: 75 year-old female with 4 day history of lower abdominal pain and diarrhea. CT scan showing sigmoid diverticulitis with intramural abscess measuring 12 mm. No pneumoperitoneum and abdomen is soft, nondistended, no rigidity or peritonitis but tender in the LLQ on palpation. Plan: Conservative measures: NPO, IV Fluids, IV abx, pain management as needed, antiemetics will need prolonged course of abx 14 day total given abscess will need colonoscopy in 6 -[address] Olmos who agrees with above History of Present Illness Reason for Consultation: Sigmoid diverticulitis with abscess Requesting Physician: JANETTE Mishra Attending Physician: Edward Hammonds MD History of Present Illness Itzel is a pleasant 75 year-old female who presented to ED with lower abdominal pain and diarrhea x 4 days. States pain started in low abdomen above pelvic bone and has spread up to around her belly button. Diarrhea started 4 days ago with 10 loose stools a day. No blood in stools. Denies of any fever, chills, nausea, vomiting at home. No history of prior diverticulitis or c.diff infection. Thought maybe she had COVID again and possible food poisoning. Also has history of recurrent UTI and pain was similar to that. Has never had a colonoscopy. ER work-up included labs which showed mild leukocytosis of 11K. CT scan of abdomen and pelvis showing severe sigmoid diverticulitis with intraluminal abscess measuring 12 mm. There is associated mesenteric inflammation but no pneumoperitoneum. Allergies Allergy/AdvReac Type Severity Reaction Status Date / Time epinephrine Allergy Mild Verified 01/04/21 13:06 lidocaine Allergy Verified 01/04/21 13:06 Home Medications Medication Instructions Recorded Confirmed Type aspirin 81 mg tablet,delayed 81 mg PO HS #30 tab 02/02/19 01/04/21 History release (Aspirin Low Dose) atorvastatin 20 mg tablet (Lipitor) 20 mg PO HS 01/04/21 01/04/21 History budesonide 0.5 mg/2 mL suspension 0.5 mg INHALATION UD 01/04/21 01/04/21 History for nebulization (Pulmicort) cholecalciferol (vitamin D3) 50 50 mcg PO BID 01/04/21 01/04/21 History mcg (2,000 unit) capsule (Vitamin D3) fluvoxamine 50 mg tablet 50 mg PO BID 01/04/21 01/04/21 History ivermectin 3 mg tablet (Stromectol) 12 mg PO WK 01/04/21 01/04/21 History metoprolol succinate 50 mg 50 mg PO HS 01/04/21 01/04/21 History tablet,extended release 24 hr (Toprol XL) multivitamin (Super Multivitamin) 1 tab PO QAM 01/04/21 01/04/21 History nitroglycerin 0.4 mg sublingual 0.4 mg SUBLINGUAL UD 01/04/21 01/04/21 History tablet (Nitrostat) Patient History Medical History (Updated 01/04/21 @ 14:32 by Marly Rice PA-C) Adhesions of flexor and extensor tendons Left foot flexor digiti quinti Atrophic urethritis Basal cell carcinoma Cardiomyopathy, nonischemic Coronary artery disease Eustachian tube dysfunction Gastric ulcer Gastro-esophageal reflux Hypercholesterolemia Mitral valve prolapse MRSA (methicillin resistant Staphylococcus aureus) Past myocardial infarction PAT (paroxysmal atrial tachycardia) Peptic ulcer Postmenopausal atrophic vaginitis Postmenopausal osteoporosis Prediabetes Premature ventricular contractions Seborrheic keratosis Situational anxiety Solar lentigo Squamous cell carcinoma skin Surgical History History of tonsillectomy and adenoidectomy Family History Father , age 54 Myocardial infarction Cardiac disorder Stroke Diabetes Stomach cancer Mother Alzheimer disease Cardiac disorder Stroke Diabetes Breast cancer Stomach cancer Grandfather (Maternal) Cardiac disorder Stroke Stomach cancer Grandmother (Paternal) Cardiac disorder Stroke Stomach cancer Grandfather (Paternal) Cardiac disorder Stroke Denies family history of Ovarian cancer Prostate cancer Colorectal cancer Social History Smoking Status: Former smoker Age Started Using Tobacco: 16; Age Quit Using Tobacco: 29; packs per day: 0.5; Number of Years Since Quit: 30; Second Hand Exposure: No; Hx Alcohol Use: Yes Alcohol type: wine Hx Substance Use: No Preferred Language: Sinhala Visual Impairment: No Limitations Hearing Ability: Normal marital status: Current Living Situation: Spouse current occupational status: retired Feels Safe at Home: Yes Childhood Exposure to Second-Hand Smoke: Yes Dental Care, Regularly: Yes Physical Activity Frequency: 3-4 Times per Week Seatbelt Use: always Sunscreen Use: Yes Review of Systems Review of Systems: All systems reviewed & are unremarkable except as noted in HPI & below Physical Exam Constitutional: WD/WN, vitals as above no acute distress and not ill appearing Respiratory: normal respiratory effort, lungs clear to auscultation Cardiovascular: RRR, no murmur, no edema Gastrointestinal (Abdomen): Inspection/Auscultation: abdomen normal to inspection and normal bowel sounds; abdomen not distended Percussion/Palpation: + abdomen tender (LLQ) and abdomen soft; no guarding and abdomen not rigid Skin: no rashes, warm and dry Psychiatric: A+Ox3, euthymic affect Results & Data ([facility]) Vital Signs (Past 12 Hours) Vital Signs Temp Pulse Pulse Resp BP BP Pulse Ox 01/04/21 11:27 75 16 161/82 H 97 01/04/21 11:02 73 20 161/82 H 98 01/04/21 10:40 76 15 96 01/04/21 10:37 36.1 C L 86 20 140/80 97 Laboratory Results 01/04/21 01/04/21 01/04/21 Range/Units 12:00 12:00 11:15 WBC (4.8-10.8) K/uL RBC (4.2-5.4) M/uL Hgb (12.0-16.0) g/dL Hct (37-47) % MCV (80-100) fL MCH (25-34) pg MCHC (32-36) g/dL RDW Std Deviation (36.4-46.3) fL RDW Coeff of Rita (11.5-14.5) % Plt Count (130-400) K/uL MPV (7.4-10.4) fL Immature Gran % (Auto) % Neut % (Auto) % Lymph % (Auto) % [place]ws[place] % (Auto) % Eos % (Auto) % Baso % (Auto) % Neut # (Auto) (1.4-6.5) K/uL Lymph # (Auto) (1.2-3.4) K/uL Owsley # (Auto) (0.11-0.59) K/uL Eos # (Auto) (0-0.5) K/uL Baso # (Auto) (0-0.2) K/uL Immature Gran # (Auto) (0.00-0.02) K/uL Sodium 138 (136-145) mmol/L Potassium 3.6 (3.5-5.1) mmol/L Chloride 104 (98-107) mmol/L Carbon Dioxide 28 (21-32) mmol/L Anion Gap 6.0 (3-11) BUN 9 (7-18) mg/dl Creatinine 0.72 (0.6-1.2) mg/dl Est Cr Clr Drug Dosing 58.3 ml/min Est GFR ( Amer) 94.3 ml/min Est GFR (Non-Af Amer) 81.3 ml/min BUN/Creatinine Ratio 12.7 (10-20) Glucose 120 H (70-99) mg/dl Calcium 9.7 (8.5-10.1) mg/dl Total Bilirubin 0.7 (0.2-1) mg/dl AST 28 (15-37) U/L ALT 30 (12-78) U/L Alkaline Phosphatase 104 (45-117) U/L Total Protein 8.5 H (6.4-8.2) gm/dl Albumin 3.8 (3.4-5.0) gm/dl Globulin 4.7 H (2.5-4.0) gm/dl Albumin/Globulin Ratio 0.8 L (0.9-2) Lipase 210 (73-393) U/L Urine Color Urine Appearance (Clear) Urine pH (4.5-7.5) Ur Specific Seaton (1.000-1.030) Urine Protein (Negative) Urine Glucose (UA) (Negative) Urine Ketones (Negative) Urine Blood (Negative) Urine Nitrite (Negative) Urine Bilirubin (Negative) Urine Urobilinogen (Negative) Ur Leukocyte Esterase (Negative) Urine WBC (Auto) (0-5) /hpf Urine RBC (Auto) (0-4) /hpf U Hyaline Cast (Auto) (0-5) /lpf U Epithel Cells (Auto) (0-5) /lpf Urine Bacteria (Auto) (Negative) COVID-19 Eval Order Covid19 at [facility] SARS-CoV-2 (PCR) NEGATIVE (Negative) 08/24/21 08/24/21 Range/Units 11:15 11:12 WBC 11.97 H (4.8-10.8) K/uL RBC 4.28 (4.2-5.4) M/uL Hgb 14.7 (12.0-16.0) g/dL Hct 43.3 (37-47) % MCV 101.2 H (80-100) fL MCH 34.3 H (25-34) pg MCHC 33.9 (32-36) g/dL RDW Std Deviation 46.3 (36.4-46.3) fL RDW Coeff of Rita 12.5 (11.5-14.5) % Plt Count 219 (130-400) K/uL MPV 11.4 H (7.4-10.4) fL Immature Gran % (Auto) 0.3 % Neut % (Auto) 79.8 % Lymph % (Auto) 12.5 % Owsley % (Auto) 7.0 % Eos % (Auto) 0.1 % Baso % (Auto) 0.3 % Neut # (Auto) 9.56 H (1.4-6.5) K/uL Lymph # (Auto) 1.50 (1.2-3.4) K/uL Owsley # (Auto) 0.84 H (0.11-0.59) K/uL Eos # (Auto) 0.01 (0-0.5) K/uL Baso # (Auto) 0.03 (0-0.2) K/uL Immature Gran # (Auto) 0.03 H (0.00-0.02) K/uL Sodium (136-145) mmol/L Potassium (3.5-5.1) mmol/L Chloride (98-107) mmol/L Carbon Dioxide (21-32) mmol/L Anion Gap (3-11) BUN (7-18) mg/dl Creatinine (0.6-1.2) mg/dl Est Cr Clr Drug Dosing ml/min Est GFR ( Amer) ml/min Est GFR (Non-Af Amer) ml/min BUN/Creatinine Ratio (10-20) Glucose (70-99) mg/dl Calcium (8.5-10.1) mg/dl Total Bilirubin (0.2-1) mg/dl AST (15-37) U/L ALT (12-78) U/L Alkaline Phosphatase (45-117) U/L Total Protein (6.4-8.2) gm/dl Albumin (3.4-5.0) gm/dl Globulin (2.5-4.0) gm/dl Albumin/Globulin Ratio (0.9-2) Lipase (73-393) U/L Urine Color Yellow Urine Appearance Clear (Clear) Urine pH 6.5 (4.5-7.5) Ur Specific Seaton 1.017 (1.000-1.030) Urine Protein Negative (Negative) Urine Glucose (UA) Negative (Negative) Urine Ketones Trace H (Negative) Urine Blood Trace H (Negative) Urine Nitrite Negative (Negative) Urine Bilirubin Negative (Negative) Urine Urobilinogen Negative (Negative) Ur Leukocyte Esterase Trace H (Negative) Urine WBC (Auto) 1-5 (0-5) /hpf Urine RBC (Auto) 5-10 H (0-4) /hpf U Hyaline Cast (Auto) 1-5 (0-5) /lpf U Epithel Cells (Auto) >30 H (0-5) /lpf Urine Bacteria (Auto) Negative (Negative) COVID-19 Eval Order SARS-CoV-2 (PCR) (Negative) Diagnostic Findings CT SCAN OF THE ABDOMEN AND PELVIS WITH IV CONTRAST CLINICAL HISTORY: Generalized/umbilical abdominal pain. COMPARISON STUDY: Abdominal CT dated 10/19/2006. TECHNIQUE: Following the IV administration of 94 cc of Optiray 320, CT scan of the abdomen and pelvis is performed from the lung bases to the proximal femora. Images are reviewed in the axial, sagittal, and coronal planes. IV contrast was administered without complication. A dose lowering technique was utilized adhering to the principles of ALARA. CT DOSE: 528.71 mGycm FINDINGS: Lung bases: The heart is normal in size and without pericardial effusion. There are small bilateral fat-containing Bochdalek hernias. The lung bases are otherwise clear. Liver: The contrast-enhanced liver is normal in size, contour, and attenuation. There is no intrahepatic biliary ductal dilatation. The hepatic veins and portal veins are patent. Hepatic cysts measure up to 2.4 cm have been present dating back to 2006. Gallbladder: Unremarkable. Spleen: Normal in size and attenuation. Pancreas: Unremarkable. Adrenal glands: Unremarkable. Kidneys: The contrast enhanced kidneys are normal in size and without hydronephrosis. The kidneys enhance symmetrically. Scattered subcentimeter cortical hypodensities likely represent cysts but are too small for definitive characterization. Abdominal vasculature: The abdominal aorta is normal in course and caliber noting moderate atherosclerotic calcification. Bowel: There is moderate to advanced sigmoid diverticulosis. There is wall thickening with pericolonic inflammation and fluid involving the proximal sigmoid consistent with acute diverticulitis. A small intramural abscess on image #275 measures up to 12 mm. No bowel obstruction is seen. The appendix is well-visualized and normal. Peritoneum: There is trace fluid in the paracolic gutters and pelvis. No intraperitoneal free air is identified. There is a small fat-containing umbilical hernia. Infiltration throughout the mesentery. Lymphadenopathy: None. Pelvic viscera: The bladder, uterus, and adnexa are normal as visualized. Skeletal structures: The skeletal structures are osteopenic. There is lumbosacral spondylosis and scoliosis. Sclerotic change is noted in the pubic symphysis. No lytic or blastic lesions are seen. IMPRESSION: 1. Findings are consistent with severe acute diverticulitis of the sigmoid colon. 2. No intraperitoneal free air is identified. 3. A 12 mm intramural abscess is noted within the wall of the sigmoid. 4. Infiltration throughout the mesentery may represent peritonitis. Trace free fluid is noted in the paracolic gutters and pelvis. 5. Additional findings as above.
--- NOTE | 2021-01-04 14:33 | History & Physical Report ---
Date of Service January 04, 2021 Assessment & Plan (1) Diverticulitis of intestine with abscess: Plan: Surgery consulted- appreciate assistance monitoring clinical course - Zosyn- 3.375 GM IV q8 - NPO except meds and sips - LR overnight - Consider follow up imaging ~48 hours (2) Cardiomyopathy, nonischemic: Plan: Remote history of Takotsubo cardiomyopathy. Per cardiology note from 11/01/2020, EF had normalized by 2017. Presently appears euvolemic on exam. - continue metoprolol succ 50 mg PO qd - continue asa daily - continue atorvastatin 20 mg po qhs (3) Coronary artery disease: Plan: Non-obstructive by cath- 50% LAD stenosis - as above - Continue ASA- can likely continue through perioperative course if were needed (4) Gastro-esophageal reflux: Plan: Protonix while NPO (5) Hypercholesterolemia: Plan: As above (6) Mitral valve prolapse: Plan: Appears euvolemic on exam - as above with BB - non limiting symptoms (7) PAT (paroxysmal atrial tachycardia): Plan: Controlled while on BB, History of Present Illness Primary Care Provider: Satya Montilla, III, 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 Patient reports to the EMD today for 4 days of abdominal pain, fatigue, and diarrhea. She has recently started Ivermectin, Zinc, and increased her Vitamin D for COVID prevention. Patient states that originally started with sharp stabbing pain to lower midline abdomen that just didn't improve. She has noticed increase in mucousy, mostly water diarrhea since that time and no blood. She endorses eating some corn over the weekend and some crackers. She endorses that she has also had some mild fevers and chills that also accompanied this. She denies any other symptoms, and no radiation of the pain. She has not noticed any change to her urinary symptoms or pattern. In the EMD she had routine labs done, ECG, and CT scan of her abdomen. CT scan of her abdomen did show a 12mm intraluminal abscess of the sigmoid colon, without free air, but with trace free fluid in the gutters and pelvis. Surgery was notified by the EMD and will continue to follow her through her admission. Patient was started on Zosyn in the EMD and will continue. Patient will be admitted for IV antibiotics, serial abdominal exams, monitoring of her symptoms, and surgical consultation as above. Will hold her COVID prophylaxis medications to include her Ivermectin, fluvoxamine, will contiinue her budesonide and will add albuterol for any dyspnea/wheeze- unsure of her need for theese. Allergies Allergy/AdvReac Type Severity Reaction Status Date / Time epinephrine Allergy Mild Verified 01/04/21 13:06 lidocaine Allergy Verified 01/04/21 13:06 Home Medications Medication Instructions Recorded Confirmed Type aspirin 81 mg tablet,delayed 81 mg PO HS #30 tab 02/02/19 01/04/21 History release (Aspirin Low Dose) atorvastatin 20 mg tablet (Lipitor) 20 mg PO HS 01/04/21 01/04/21 History budesonide 0.5 mg/2 mL suspension 0.5 mg INHALATION BID 01/04/21 01/04/21 History for nebulization (Pulmicort) cholecalciferol (vitamin D3) 50 50 mcg PO BID 01/04/21 01/04/21 History mcg (2,000 unit) capsule (Vitamin D3) fluvoxamine 50 mg tablet 50 mg PO BID 01/04/21 01/04/21 History ivermectin 3 mg tablet (Stromectol) 12 mg PO WK 01/04/21 01/04/21 History metoprolol succinate 50 mg 50 mg PO HS 01/04/21 01/04/21 History tablet,extended release 24 hr (Toprol XL) multivitamin (Super Multivitamin) 1 tab PO QAM 01/04/21 01/04/21 History nitroglycerin 0.4 mg sublingual 0.4 mg SUBLINGUAL UD 01/04/21 01/04/21 History tablet (Nitrostat) Past Med/Surg History Medical History Adhesions of flexor and extensor tendons Left foot flexor digiti quinti Atrophic urethritis Basal cell carcinoma Cardiomyopathy, nonischemic Coronary artery disease Eustachian tube dysfunction Gastric ulcer Gastro-esophageal reflux Hypercholesterolemia Mitral valve prolapse MRSA (methicillin resistant Staphylococcus aureus) Past myocardial infarction PAT (paroxysmal atrial tachycardia) Peptic ulcer Postmenopausal atrophic vaginitis Postmenopausal osteoporosis Prediabetes Premature ventricular contractions Seborrheic keratosis Situational anxiety Solar lentigo Squamous cell carcinoma skin Surgical History History of tonsillectomy and adenoidectomy Family History Father , age 54 Myocardial infarction Cardiac disorder Stroke Diabetes Stomach cancer Mother Alzheimer disease Cardiac disorder Stroke Diabetes Breast cancer Stomach cancer Grandfather (Maternal) Cardiac disorder Stroke Stomach cancer Grandmother (Paternal) Cardiac disorder Stroke Stomach cancer Grandfather (Paternal) Cardiac disorder Stroke Denies family history of Ovarian cancer Prostate cancer Colorectal cancer Social History Smoking Status: Former smoker Age Started Using Tobacco: 16; Age Quit Using Tobacco: 29; packs per day: 0.5; Number of Years Since Quit: 30; Second Hand Exposure: No; Do You Dip or Chew Tobacco: No; Tobacco Cessation Education Requested by Patient: No Hx Alcohol Use: Yes Alcohol type: wine Hx Substance Use: No Preferred Language: Hungarian Communication Ability: Effective Visual Impairment: No Limitations Hearing Ability: Normal Recreation Adviser Required: No Beliefs That Will Affect Care: None marital status: Current Living Situation: Spouse current occupational status: retired Other Information That Helps Us Care for You: No Feels Safe at Home: Yes Safety Concerns: Feels Safe At This Time Childhood Exposure to Second-Hand Smoke: Yes Dental Care, Regularly: Yes Physical Activity Frequency: 3-4 Times per Week Seatbelt Use: always Sunscreen Use: Yes Assistive Devices: Glasses Review of Systems Review of Systems: REVIEW OF SYSTEMS: Constitutional: No fever, sweats or chills Eyes: No diplopia, no worsening or blurred vision ENT: normal hearing, no trouble swallowing Respiratory: No cough, sputum, dyspnea at rest or on exertion Cardiovascular: No chest pain, tightness or palpitations Abdomen: (+) pain, nausea, diarrhea, NO vomiting or constipation Musculoskeletal: No joint pain, calf pain, swelling Neurologic: No weakness, numbness/tingling, or balance problems Psychiatric: No anxiety or depression Skin: No rash or itch Physical Exam Physical Exam: PHYSICAL EXAM: General: awake, alert, no apparent distress Head: Normocephalic, atraumatic ENT: PERRL, EOMI, no pharyngeal exudate, mucous membranes moist Neuro: AAO x 3, speech clear and appropriate, strength intact bilaterally 5/5, sensation intact and equal all extremities and dermatomes, no pronator drift Chest: equal rise and fall of the chest, no accessory muscle use, no heaves or thrills, Clear to auscultation, on room air, Cardiac: Regular rate and rhythm, telemetry reviewed-NSR skin warm dry, cap refill <3 seconds, peripheral pulses +2 no JVD, no murmur, no JVD, no edema GI: NABS x 4 quadrants, soft, tender to palpation lower quad midline, no rebound, guarding or tenderness : Spontaneously voiding, no pain, no CVA tenderness, Extremities: Normal inspection, no peripheral edema or erythema, calfs nontender to palpation Psych: Normal mood and affect Skin: no rash or erythema Results & Data Results & Data ([facility]) Vital Signs (Past 12 Hours) Vital Signs Temp Pulse Pulse Resp BP BP Pulse Ox 01/04/21 11:27 75 16 161/82 H 97 01/04/21 11:02 73 20 161/82 H 98 01/04/21 10:40 76 15 96 01/04/21 10:37 36.1 C L 86 20 140/80 97 Laboratory Results Abnormal lab results 01/04/21 01/04/21 01/04/21 Range/Units 11:12 11:15 11:15 WBC 11.97 H (4.8-10.8) K/uL MCV 101.2 H (80-100) fL MCH 34.3 H (25-34) pg MPV 11.4 H (7.4-10.4) fL Neut # (Auto) 9.56 H (1.4-6.5) K/uL [place] # (Auto) 0.84 H (0.11-0.59) K/uL Immature Gran # (Auto) 0.03 H (0.00-0.02) K/uL Glucose 120 H (70-99) mg/dl C-Reactive Protein (0-0.29) mg/dl Total Protein 8.5 H (6.4-8.2) gm/dl Globulin 4.7 H (2.5-4.0) gm/dl Albumin/Globulin Ratio 0.8 L (0.9-2) Urine Ketones Trace H (Negative) Urine Blood Trace H (Negative) Ur Leukocyte Esterase Trace H (Negative) Urine RBC (Auto) 5-10 H (0-4) /hpf U Epithel Cells (Auto) >30 H (0-5) /lpf 01/04/21 Range/Units 16:13 WBC (4.8-10.8) K/uL MCV (80-100) fL MCH (25-34) pg MPV (7.4-10.4) fL Neut # (Auto) (1.4-6.5) K/uL [place] # (Auto) (0.11-0.59) K/uL Immature Gran # (Auto) (0.00-0.02) K/uL Glucose (70-99) mg/dl C-Reactive Protein 4.08 H (0-0.29) mg/dl Total Protein (6.4-8.2) gm/dl Globulin (2.5-4.0) gm/dl Albumin/Globulin Ratio (0.9-2) Urine Ketones (Negative) Urine Blood (Negative) Ur Leukocyte Esterase (Negative) Urine RBC (Auto) (0-4) /hpf U Epithel Cells (Auto) (0-5) /lpf Diagnostic Findings Abdomen/Pelvis CT 01/04/21 10:48 CT SCAN OF THE ABDOMEN AND PELVIS WITH IV CONTRAST CLINICAL HISTORY: Generalized/umbilical abdominal pain. COMPARISON STUDY: Abdominal CT dated 10/19/2006. TECHNIQUE: Following the IV administration of 94 cc of Optiray 320, CT scan of the abdomen and pelvis is performed from the lung bases to the proximal femora. Images are reviewed in the axial, sagittal, and coronal planes. IV contrast was administered without complication. A dose lowering technique was utilized adhering to the principles of ALARA. CT DOSE: 528.71 mGycm FINDINGS: Lung bases: The heart is normal in size and without pericardial effusion. There are small bilateral fat-containing Bochdalek hernias. The lung bases are otherwise clear. Liver: The contrast-enhanced liver is normal in size, contour, and attenuation. There is no intrahepatic biliary ductal dilatation. The hepatic veins and portal veins are patent. Hepatic cysts measure up to 2.4 cm have been present dating back to 2006. Gallbladder: Unremarkable. Spleen: Normal in size and attenuation. Pancreas: Unremarkable. Adrenal glands: Unremarkable. Kidneys: The contrast enhanced kidneys are normal in size and without hydronephrosis. The kidneys enhance symmetrically. Scattered subcentimeter cortical hypodensities likely represent cysts but are too small for definitive characterization. Abdominal vasculature: The abdominal aorta is normal in course and caliber noting moderate atherosclerotic calcification. Bowel: There is moderate to advanced sigmoid diverticulosis. There is wall thickening with pericolonic inflammation and fluid involving the proximal sigmoid consistent with acute diverticulitis. A small intramural abscess on image #275 measures up to 12 mm. No bowel obstruction is seen. The appendix is well-visualized and normal. Peritoneum: There is trace fluid in the paracolic gutters and pelvis. No intraperitoneal free air is identified. There is a small fat-containing umbilical hernia. Infiltration throughout the mesentery. Lymphadenopathy: None. Pelvic viscera: The bladder, uterus, and adnexa are normal as visualized. Skeletal structures: The skeletal structures are osteopenic. There is lumbosacral spondylosis and scoliosis. Sclerotic change is noted in the pubic symphysis. No lytic or blastic lesions are seen. IMPRESSION: 1. Findings are consistent with severe acute diverticulitis of the sigmoid colon. 2. No intraperitoneal free air is identified. 3. A 12 mm intramural abscess is noted within the wall of the sigmoid. 4. Infiltration throughout the mesentery may represent peritonitis. Trace free fluid is noted in the paracolic gutters and pelvis. 5. Additional findings as above. ACT 112: Negative or not required by law. Electronically signed by: Ye Hugo M.D. 01/04/2021 12:44 PM Medications Administered Acetaminophen (Acetaminophen 325 Mg Tab) 650 mg PO Q6 PRN PRN Reason: pain/fever Stop: 02/03/21 14:44 Last Admin: 01/04/21 14:55 Dose: 650 mg Documented by: [id number] Discontinued Medications Sodium Chloride (Nss 1000ml) 1,000 mls @ 999 mls/hr IV .Q1H1M ONE Stop: 01/04/21 11:48 Last Infusion: 01/04/21 13:32 Dose: 0 mls/hr Documented by: [id number] Admin: 01/04/21 11:26 Dose: 999 mls/hr Documented by: [id number] Piperacillin Sod/Tazobactam Sod (Zosyn) 4.5 gm in 120 mls @ 240 mls/hr IV NOW ONE Stop: 01/04/21 13:20 Last Infusion: 01/04/21 14:23 Dose: 0 mls/hr Documented by: [id number] Admin: 01/04/21 13:20 Dose: 240 mls/hr Documented by: [id number] Ioversol (Optiray 320 100ml) 94 ml IV ONCE ONE Stop: 01/04/21 12:21 Last Admin: 01/04/21 12:20 Dose: 94 ml Documented by: [id number] Ondansetron HCl (Ondansetron Inj 2 Mg/Ml 2 Ml Vial) 4 mg IV NOW STA Stop: 01/04/21 10:49 Last Admin: 01/04/21 11:26 Dose: 4 mg Documented by: [id number] ECG Additional Comments: ordered on admission - pending during this documentation Code Status & VTE Plan Code Status CODE: FULL VTE: SCD's, ambulation, Heparin 5000 sub q q8 Supervising Physician Co-Signing Physician Notes I supervised JANETTE Mishra on this admission. I interviewed and examined the patient independently of him. The plan is as written in his note except for any following changes/exceptions: None 75yo F w/ hx of CAD and Takasubo cardiomyopathy (with normalized EF) who presents with diverticulitis with small abscess. CT a/p also indicates some small concern for peritonitis, though her clinical exam is not consistent as she has relatively mild tenderness, no rebound or guarding, and appears comfortable and clinically stable. - Surgery following - IV Abx for now; reassess frequently and consider repeat imaging PG Care Time/CCT Total # of Minutes Spent Total Time Spent with Patient: Total time spent is greater than 50% in coordination of care (as documented) at patient's floor/unit and/or counseling patient: Coding Level of Care Code 74982 Initial Inpt Care Lvl 3 Diagnoses Diverticulitis of intestine with abscess K57.80 Cardiomyopathy, nonischemic I42.8 Coronary artery disease I25.10 Associated angina: without angina Coronary Disease-Associated Artery/Lesion type: [place] artery [place] vs. transplanted heart: [place] heart Gastro-esophageal reflux K21.9 Esophagitis presence: without esophagitis Hypercholesterolemia E78.00 Mitral valve prolapse I34.1 PAT (paroxysmal atrial tachycardia) I47.1 (1) Coronary artery disease Associated angina: without angina Coronary Disease-Associated Artery/Lesion type: [place] artery [place] vs. transplanted heart: [place] heart Qualified Code(s): I25.10 - Atherosclerotic heart disease of [place] coronary artery without angina pectoris (2) Gastro-esophageal reflux Esophagitis presence: without esophagitis Qualified Code(s): K21.9 - Gastro- esophageal reflux disease without esophagitis
[2021-01-04] MEDS ORDERED: ACETAMINOPHEN 325 MG TAB PO STA (14:45)
[2021-01-04] MEDS: ACETAMINOPHEN 325 MG TAB PO PRN (14:55)
[2021-01-04] MEDS ORDERED: NITROGLYCERIN SL 0.4 MG/TAB TAB SL SCH (16:08)
[2021-01-04] MEDS ORDERED: ALBUTEROL HFA 8 GM INHALER INH PRN (17:17)
[2021-01-04] MEDS: LACTATED RINGER'S 1,000 ML IV SCH (17:30)
[2021-01-04] MEDS: BUDESONIDE 0.5 MG/2 ML VIAL (PULMICORT) INH SCH (18:59)
[2021-01-04] MEDS: PIPERACILLIN/TAZOBACTAM 3.375 GM in DEXTROSE 5% 100 ML IV SCH (19:25)
[2021-01-04] MEDS: ATORVASTATIN 20 MG TAB PO SCH (19:27)
[2021-01-04] MEDS: ASPIRIN 81 MG ECTAB PO SCH (19:27)
[2021-01-04] MEDS: METOPROLOL SUCC 50MG EXT REL TAB PO SCH (19:27)
[2021-01-04] MEDS: CHOLECALCIFEROL 1,000 UNITS 25 MCG TAB PO SCH (19:28)
[2021-01-04] MEDS ORDERED: MELATONIN 3 MG TAB PO PRN (20:40)
[2021-01-04] MEDS: HEPARIN SOD 5,000 UNIT/0.5 ML VIAL SQ SCH ×2 (22:37→22:40)
[2021-01-05] MEDS: PIPERACILLIN/TAZOBACTAM 3.375 GM in DEXTROSE 5% 100 ML IV SCH ×3 (03:42→20:37)
[2021-01-05] MEDS ORDERED: ONDANSETRON INJ 2 MG/ML 2 ML VIAL IV PRN (03:44)
[2021-01-05] MEDS: HEPARIN SOD 5,000 UNIT/0.5 ML VIAL SQ SCH ×3 (03:49→22:03)
[2021-01-05] MEDS: LACTATED RINGER'S 1,000 ML IV SCH ×2 (05:46→16:57)
[2021-01-05] MEDS: BUDESONIDE 0.5 MG/2 ML VIAL (PULMICORT) INH SCH ×2 (06:03→07:14)
[2021-01-05 07:52] LABS: Basophils # (auto) 0.03 K/uL (0-0.2); Basophils % (auto) 0.4 %; Eosinophils # (auto) 0.11 K/uL (0-0.5); Eosinophils % (auto) 1.5 %; Hematocrit (blood only) 40.8 % (37-47); Hemoglobin 13.7 g/dL (12.0-16.0); Immature Granulocytes # (auto) 0.01 K/uL (0.00-0.02); Immature Granulocytes % (auto) 0.1 %; Lymphocytes # (auto) 2.27 K/uL (1.2-3.4); Lymphocytes % (auto) 31.1 %; Mean Corpuscular Hemoglobin 33.7 pg (25-34); Mean Corpuscular Hgb Conc 33.6 g/dL (32-36); Mean Corpuscular Volume 100.2 fL (80-100); Mean Platelet Volume 11.6 fL (7.4-10.4); Monocytes # (auto) 0.36 K/uL (0.11-0.59); Monocytes % (auto) 4.9 %; Neutrophils # (auto) 4.51 K/uL (1.4-6.5); Platelet Count 199 K/uL (130-400); RDW Coefficient of Variation 12.8 % (11.5-14.5); RDW Standard Deviation 46.7 fL (36.4-46.3); Red Blood Count 4.07 M/uL (4.2-5.4); White Blood Count 7.29 K/uL (4.8-10.8)
[2021-01-05 08:22] LABS: BUN Creatinine Ratio 13.2 (10-20); Calcium 9.4 mg/dl (8.5-10.1); Creatinine Clr Calc Pharmacy 61.9 ml/min; Est GFR (African American) 98.5 ml/min; Magnesium 1.8 mg/dl (1.8-2.4); Potassium 3.6 mmol/L (3.5-5.1)
--- NOTE | 2021-01-05 09:01 | Electrocardiogram Report ---
Test Reason : Blood Pressure : / mmHG Vent. Rate : 068 BPM Atrial Rate : 068 BPM P-R Int : 126 ms QRS Dur : 076 ms QT Int : 412 ms P-R-T Axes : 043 018 031 degrees QTc Int : 438 ms Normal sinus rhythm Normal ECG When compared with ECG of 26-MAR-2010 10:36, No significant change was found Confirmed by Zachary Alva ([id number]) on 01/05/2021 9:00:36 AM Referred By: Satya Montilla Confirmed By:Zachary Alva
[2021-01-05] MEDS: CHOLECALCIFEROL 1,000 UNITS 25 MCG TAB PO SCH ×2 (09:17→20:30)
--- NOTE | 2021-01-05 09:51 | Surgery Progress Note ---
Date of Service January 05, 2021 Assessment & Plan (1) Diverticulitis of intestine with abscess: Plan: 75 year-old female with 4 day history of lower abdominal pain and diarrhea. CT scan showing sigmoid diverticulitis with intramural abscess measuring 12 mm. leukocytosis resolved abdomen is soft, nontender on exam Plan: Can likely trial clear liquids at dinner continue IV Zosyn will need prolonged course of abx, 14 day total given abscess will need colonoscopy in 6 -[address] Olmos has seen patient on rounds and agrees with plan above. Admission and Anticipated Discharge Date Admission Date: January 04, 2021 Subjective feeling much better today, not having any more abdominal pain some nausea last night that was resolved with zofran passing gas and liquid stool no fevers or chills Physical Exam Constitutional: WD/WN, vitals as above no acute distress and not ill appearing Respiratory: normal respiratory effort; no respiratory distress, no labored breathing and no retractions Gastrointestinal (Abdomen): Inspection/Auscultation: abdomen normal to inspection and normal bowel sounds; abdomen not distended Percussion/Palpation: abdomen soft; abdomen nontender, no guarding and abdomen not rigid Skin: no rashes, warm and dry Psychiatric: A+Ox3, euthymic affect Results & Data ([facility]) Vital Signs (Past 12 Hours) Vital Signs Temp Pulse Resp BP Pulse Ox 01/05/21 07:42 36.8 C 70 16 105/70 97 01/04/21 22:29 36.9 C 61 16 111/71 97 Laboratory Results 01/05/21 01/05/21 01/05/21 Range/Units 07:16 07:16 07:16 WBC 7.29 (4.8-10.8) K/uL RBC 4.07 L (4.2-5.4) M/uL Hgb 13.7 (12.0-16.0) g/dL Hct 40.8 (37-47) % MCV 100.2 H (80-100) fL MCH 33.7 (25-34) pg MCHC 33.6 (32-36) g/dL RDW Std Deviation 46.7 H (36.4-46.3) fL RDW Coeff of Rita 12.8 (11.5-14.5) % Plt Count 199 (130-400) K/uL MPV 11.6 H (7.4-10.4) fL Immature Gran % (Auto) 0.1 % Neut % (Auto) 62.0 % Lymph % (Auto) 31.1 % [place] % (Auto) 4.9 % Eos % (Auto) 1.5 % Baso % (Auto) 0.4 % Neut # (Auto) 4.51 (1.4-6.5) K/uL Lymph # (Auto) 2.27 (1.2-3.4) K/uL [place] # (Auto) 0.36 (0.11-0.59) K/uL Eos # (Auto) 0.11 (0-0.5) K/uL Baso # (Auto) 0.03 (0-0.2) K/uL Immature Gran # (Auto) 0.01 (0.00-0.02) K/uL Sodium 141 (136-145) mmol/L Potassium 3.6 (3.5-5.1) mmol/L Chloride 107 (98-107) mmol/L Carbon Dioxide 26 (21-32) mmol/L Anion Gap 8.0 (3-11) BUN 9 (7-18) mg/dl Creatinine 0.68 (0.6-1.2) mg/dl Est Cr Clr Drug Dosing 61.9 ml/min Est GFR ( Amer) 98.5 ml/min Est GFR (Non-Af Amer) 85.0 ml/min BUN/Creatinine Ratio 13.2 (10-20) Glucose 86 (70-99) mg/dl Lactate (0.4-2.0) mmol/L Calcium 9.4 (8.5-10.1) mg/dl Magnesium 1.8 (1.8-2.4) mg/dl C-Reactive Protein (0-0.29) mg/dl Procalcitonin (0-0.5) ng/ml COVID-19 Eval Order SARS-CoV-2 (PCR) (Negative) Hepatitis C Ab Screen Neg (Neg) 01/04/21 01/04/21 01/04/21 Range/Units 16:13 16:13 15:08 WBC (4.8-10.8) K/uL RBC (4.2-5.4) M/uL Hgb (12.0-16.0) g/dL Hct (37-47) % MCV (80-100) fL MCH (25-34) pg MCHC (32-36) g/dL RDW Std Deviation (36.4-46.3) fL RDW Coeff of Rita (11.5-14.5) % Plt Count (130-400) K/uL MPV (7.4-10.4) fL Immature Gran % (Auto) % Neut % (Auto) % Lymph % (Auto) % [place] % (Auto) % Eos % (Auto) % Baso % (Auto) % Neut # (Auto) (1.4-6.5) K/uL Lymph # (Auto) (1.2-3.4) K/uL [place] # (Auto) (0.11-0.59) K/uL Eos # (Auto) (0-0.5) K/uL Baso # (Auto) (0-0.2) K/uL Immature Gran # (Auto) (0.00-0.02) K/uL Sodium (136-145) mmol/L Potassium (3.5-5.1) mmol/L Chloride (98-107) mmol/L Carbon Dioxide (21-32) mmol/L Anion Gap (3-11) BUN (7-18) mg/dl Creatinine (0.6-1.2) mg/dl Est Cr Clr Drug Dosing ml/min Est GFR ( Amer) ml/min Est GFR (Non-Af Amer) ml/min BUN/Creatinine Ratio (10-20) Glucose (70-99) mg/dl Lactate 1.0 (0.4-2.0) mmol/L Calcium (8.5-10.1) mg/dl Magnesium (1.8-2.4) mg/dl C-Reactive Protein 4.08 H (0-0.29) mg/dl Procalcitonin < 0.05 (0-0.5) ng/ml COVID-19 Eval Order SARS-CoV-2 (PCR) (Negative) Hepatitis C Ab Screen (Neg) 01/04/21 01/04/21 Range/Units 12:00 12:00 WBC (4.8-10.8) K/uL RBC (4.2-5.4) M/uL Hgb (12.0-16.0) g/dL Hct (37-47) % MCV (80-100) fL MCH (25-34) pg MCHC (32-36) g/dL RDW Std Deviation (36.4-46.3) fL RDW Coeff of Rita (11.5-14.5) % Plt Count (130-400) K/uL MPV (7.4-10.4) fL Immature Gran % (Auto) % Neut % (Auto) % Lymph % (Auto) % [place] % (Auto) % Eos % (Auto) % Baso % (Auto) % Neut # (Auto) (1.4-6.5) K/uL Lymph # (Auto) (1.2-3.4) K/uL [place] # (Auto) (0.11-0.59) K/uL Eos # (Auto) (0-0.5) K/uL Baso # (Auto) (0-0.2) K/uL Immature Gran # (Auto) (0.00-0.02) K/uL Sodium (136-145) mmol/L Potassium (3.5-5.1) mmol/L Chloride (98-107) mmol/L Carbon Dioxide (21-32) mmol/L Anion Gap (3-11) BUN (7-18) mg/dl Creatinine (0.6-1.2) mg/dl Est Cr Clr Drug Dosing ml/min Est GFR ( Amer) ml/min Est GFR (Non-Af Amer) ml/min BUN/Creatinine Ratio (10-20) Glucose (70-99) mg/dl Lactate (0.4-2.0) mmol/L Calcium (8.5-10.1) mg/dl Magnesium (1.8-2.4) mg/dl C-Reactive Protein (0-0.29) mg/dl Procalcitonin (0-0.5) ng/ml COVID-19 Eval Order Covid19 at [facility] SARS-CoV-2 (PCR) NEGATIVE (Negative) Hepatitis C Ab Screen (Neg)
[2021-01-05] MEDS: PANTOprazole 40 MG in SYRINGE 0 ML IV SCH (12:38)
--- NOTE | 2021-01-05 14:04 | Hospitalist Progress Note ---
Date of Service January 05, 2021 Assessment & Plan (1) Diverticulitis of intestine with abscess: Plan: Severe, of proximal Sigmoid colon, seen on CT w/ 12mm intramural abscess. Surgery consulted- appreciate assistance monitoring clinical course Pain improving, still with nausea and diarrhea -would NOT advance diet today-continue bowel rest, ok for ice chips and sips- changed diet back to NPO -continue Zosyn- 3.375 GM IV q8 and eventually convert to po abx x 14 day course -continue IVFs -will need colonoscopy in 6-8 weeks, however patient fearful of this because of her h/o PAT and reports having PAT with any anal stimulation-would need to discuss with her [employer]. COuld consider alternative imaging ie CT abd/pel with IV/po contrast or CT colonography, etc. -continue pain control prn -of note, did start taking Ivermectin 3 days before symptoms started-would recommend discontinuation of this (2) Cardiomyopathy, nonischemic: Plan: Remote history of Takotsubo cardiomyopathy. Per cardiology note from 11/01/2020, EF had normalized by 2017. Presently appears euvolemic on exam. - continue metoprolol succ 50 mg PO qd - continue asa daily - continue atorvastatin 20 mg po qhs (3) Coronary artery disease: Plan: Non-obstructive by cath in 2017- 50% LAD stenosis no acute issues, no CP - Continue ASA, statin- can likely continue through perioperative course if were needed (4) Gastro-esophageal reflux: Plan: Protonix IV while NPO has a h/o multiple peptic ulcers with GIB reuqiring transfusion in past that were stress-induced (5) Hypercholesterolemia: Plan: statin (6) Mitral valve prolapse: Plan: Appears euvolemic on exam - as above with BB - non limiting symptoms (7) PAT (paroxysmal atrial tachycardia): Plan: Controlled while on BB Plan: DVT proph-heparin SQ Dispo-continued stay Admission and Anticipated Discharge Date Admission Date: January 04, 2021 Subjective Pt feeling better, has no pain currently in abdomen but is feeling fairly nauseated still. No vomiting. Had 4 loose watery nonbloody stools today. No CP or SOB but does have a h/o PAT and ablation, Takatsubo's CM, and because of that, she has never had a colonoscopy for fear of having CV issues. Review of Systems Review of Systems: All systems reviewed & are unremarkable except as noted in HPI & below Physical Exam Constitutional: WD/WN, vitals as above Eyes: + anicteric sclerae ENMT: external ear and nose normal, oropharynx normal Neck: trachea midline, no thyromegaly Respiratory: normal respiratory effort, lungs clear to auscultation Cardiovascular: RRR, no murmur, no edema Chest (Breasts): Chest: normal inspection of chest Gastrointestinal (Abdomen): normal bowel sounds, soft, nontender, no hepatosplenomegaly Musculoskeletal: Extremities: extremities normal to inspection; no cyanosis and no clubbing Skin: no rashes, warm and dry Neurologic: moves all extremities and awake; no focal motor deficits Psychiatric: A+Ox3, euthymic affect Lymphatic: no lymphedema Results & Data Results & Data ([facility]) Vital Signs (Past 12 Hours) Vital Signs Temp Pulse Resp BP Pulse Ox 01/05/21 07:42 36.8 C 70 16 105/70 97 Laboratory Results 01/05/21 01/05/21 01/05/21 Range/Units 07:16 07:16 07:16 WBC 7.29 (4.8-10.8) K/uL RBC 4.07 L (4.2-5.4) M/uL Hgb 13.7 (12.0-16.0) g/dL Hct 40.8 (37-47) % MCV 100.2 H (80-100) fL MCH 33.7 (25-34) pg MCHC 33.6 (32-36) g/dL RDW Std Deviation 46.7 H (36.4-46.3) fL RDW Coeff of [place] 12.8 (11.5-14.5) % Plt Count 199 (130-400) K/uL MPV 11.6 H (7.4-10.4) fL Immature Gran % (Auto) 0.1 % Neut % (Auto) 62.0 % Lymph % (Auto) 31.1 % [place] % (Auto) 4.9 % Eos % (Auto) 1.5 % Baso % (Auto) 0.4 % Neut # (Auto) 4.51 (1.4-6.5) K/uL Lymph # (Auto) 2.27 (1.2-3.4) K/uL [place] # (Auto) 0.36 (0.11-0.59) K/uL Eos # (Auto) 0.11 (0-0.5) K/uL Baso # (Auto) 0.03 (0-0.2) K/uL Immature Gran # (Auto) 0.01 (0.00-0.02) K/uL Sodium 141 (136-145) mmol/L Potassium 3.6 (3.5-5.1) mmol/L Chloride 107 (98-107) mmol/L Carbon Dioxide 26 (21-32) mmol/L Anion Gap 8.0 (3-11) BUN 9 (7-18) mg/dl Creatinine 0.68 (0.6-1.2) mg/dl Est Cr Clr Drug Dosing 61.9 ml/min Est GFR ( Amer) 98.5 ml/min Est GFR (Non-Af Amer) 85.0 ml/min BUN/Creatinine Ratio 13.2 (10-20) Glucose 86 (70-99) mg/dl Lactate (0.4-2.0) mmol/L Calcium 9.4 (8.5-10.1) mg/dl Magnesium 1.8 (1.8-2.4) mg/dl C-Reactive Protein (0-0.29) mg/dl Procalcitonin (0-0.5) ng/ml SARS-CoV-2 (PCR) (Negative) Hepatitis C Ab Screen Neg (Neg) 01/04/21 01/04/21 01/04/21 Range/Units 16:13 16:13 15:08 WBC (4.8-10.8) K/uL RBC (4.2-5.4) M/uL Hgb (12.0-16.0) g/dL Hct (37-47) % MCV (80-100) fL MCH (25-34) pg MCHC (32-36) g/dL RDW Std Deviation (36.4-46.3) fL RDW Coeff of [place] (11.5-14.5) % Plt Count (130-400) K/uL MPV (7.4-10.4) fL Immature Gran % (Auto) % Neut % (Auto) % Lymph % (Auto) % [place] % (Auto) % Eos % (Auto) % Baso % (Auto) % Neut # (Auto) (1.4-6.5) K/uL Lymph # (Auto) (1.2-3.4) K/uL [place] # (Auto) (0.11-0.59) K/uL Eos # (Auto) (0-0.5) K/uL Baso # (Auto) (0-0.2) K/uL Immature Gran # (Auto) (0.00-0.02) K/uL Sodium (136-145) mmol/L Potassium (3.5-5.1) mmol/L Chloride (98-107) mmol/L Carbon Dioxide (21-32) mmol/L Anion Gap (3-11) BUN (7-18) mg/dl Creatinine (0.6-1.2) mg/dl Est Cr Clr Drug Dosing ml/min Est GFR ( Amer) ml/min Est GFR (Non-Af Amer) ml/min BUN/Creatinine Ratio (10-20) Glucose (70-99) mg/dl Lactate 1.0 (0.4-2.0) mmol/L Calcium (8.5-10.1) mg/dl Magnesium (1.8-2.4) mg/dl C-Reactive Protein 4.08 H (0-0.29) mg/dl Procalcitonin < 0.05 (0-0.5) ng/ml SARS-CoV-2 (PCR) (Negative) Hepatitis C Ab Screen (Neg) 01/04/21 Range/Units 12:00 WBC (4.8-10.8) K/uL RBC (4.2-5.4) M/uL Hgb (12.0-16.0) g/dL Hct (37-47) % MCV (80-100) fL MCH (25-34) pg MCHC (32-36) g/dL RDW Std Deviation (36.4-46.3) fL RDW Coeff of Rita (11.5-14.5) % Plt Count (130-400) K/uL MPV (7.4-10.4) fL Immature Gran % (Auto) % Neut % (Auto) % Lymph % (Auto) % [place] % (Auto) % Eos % (Auto) % Baso % (Auto) % Neut # (Auto) (1.4-6.5) K/uL Lymph # (Auto) (1.2-3.4) K/uL [place] # (Auto) (0.11-0.59) K/uL Eos # (Auto) (0-0.5) K/uL Baso # (Auto) (0-0.2) K/uL Immature Gran # (Auto) (0.00-0.02) K/uL Sodium (136-145) mmol/L Potassium (3.5-5.1) mmol/L Chloride (98-107) mmol/L Carbon Dioxide (21-32) mmol/L Anion Gap (3-11) BUN (7-18) mg/dl Creatinine (0.6-1.2) mg/dl Est Cr Clr Drug Dosing ml/min Est GFR ( Amer) ml/min Est GFR (Non-Af Amer) ml/min BUN/Creatinine Ratio (10-20) Glucose (70-99) mg/dl Lactate (0.4-2.0) mmol/L Calcium (8.5-10.1) mg/dl Magnesium (1.8-2.4) mg/dl C-Reactive Protein (0-0.29) mg/dl Procalcitonin (0-0.5) ng/ml SARS-CoV-2 (PCR) NEGATIVE (Negative) Hepatitis C Ab Screen (Neg) PG Care Time/CCT Total # of Minutes Spent Total Time Spent with Patient: Total time spent is greater than 50% in coordination of care (as documented) at patient's floor/unit and/or counseling patient: Coding Level of Care Code 87155 Subseq Hosp Care Lvl 2 Diagnoses Diverticulitis of intestine with abscess K57.80 Cardiomyopathy, nonischemic I42.8 Coronary artery disease I25.10 Coronary Disease-Associated Artery/Lesion type: [place] artery [place] vs. transplanted heart: [place] heart Associated angina: without angina Gastro-esophageal reflux K21.9 Esophagitis presence: without esophagitis Hypercholesterolemia E78.00 Mitral valve prolapse I34.1 PAT (paroxysmal atrial tachycardia) I47.1 (1) Coronary artery disease Coronary Disease-Associated Artery/Lesion type: [place] artery [place] vs. transplanted heart: [place] heart Associated angina: without angina Qualified Code(s): I25.10 - Atherosclerotic heart disease of [place] coronary artery without angina pectoris (2) Gastro-esophageal reflux Esophagitis presence: without esophagitis Qualified Code(s): K21.9 - Gastro- esophageal reflux disease without esophagitis
[2021-01-05] MEDS: ASPIRIN 81 MG ECTAB PO SCH (20:29)
[2021-01-05] MEDS: ATORVASTATIN 20 MG TAB PO SCH (20:29)
[2021-01-05] MEDS: METOPROLOL SUCC 50MG EXT REL TAB PO SCH (20:31)
[2021-01-06] MEDS: PIPERACILLIN/TAZOBACTAM 3.375 GM in DEXTROSE 5% 100 ML IV SCH ×3 (04:17→19:49)
[2021-01-06] MEDS: LACTATED RINGER'S 1,000 ML IV SCH ×2 (04:17→16:21)
[2021-01-06] MEDS: HEPARIN SOD 5,000 UNIT/0.5 ML VIAL SQ SCH ×3 (04:24→20:05)
[2021-01-06 07:20] LABS: BUN Creatinine Ratio 22.8 (10-20); Calcium 8.6 mg/dl (8.5-10.1); Creatinine Clr Calc Pharmacy 80.9 ml/min; Est GFR (African American) 107.6 ml/min; Est GFR (Non-African American) 92.8 ml/min; Magnesium 1.8 mg/dl (1.8-2.4); Potassium 3.6 mmol/L (3.5-5.1)
[2021-01-06 07:38] LABS: Basophils # (auto) 0.03 K/uL (0-0.2); Basophils % (auto) 0.5 %; Eosinophils # (auto) 0.13 K/uL (0-0.5); Eosinophils % (auto) 2.3 %; Hematocrit (blood only) 33.7 % (37-47); Hemoglobin 11.1 g/dL (12.0-16.0); Lymphocytes # (auto) 1.86 K/uL (1.2-3.4); Lymphocytes % (auto) 32.9 %; Mean Corpuscular Hemoglobin 33.2 pg (25-34); Mean Corpuscular Hgb Conc 32.9 g/dL (32-36); Mean Corpuscular Volume 100.9 fL (80-100); Monocytes # (auto) 0.54 K/uL (0.11-0.59); Monocytes % (auto) 9.6 %; Neutrophils # (auto) 3.09 K/uL (1.4-6.5); Neutrophils % (auto) 54.7 %; Platelet Count 178 K/uL (130-400); RDW Coefficient of Variation 12.3 % (11.5-14.5); RDW Standard Deviation 45.6 fL (36.4-46.3); Red Blood Count 3.34 M/uL (4.2-5.4); White Blood Count 5.65 K/uL (4.8-10.8)
[2021-01-06] MEDS: CHOLECALCIFEROL 1,000 UNITS 25 MCG TAB PO SCH ×2 (07:58→20:05)
[2021-01-06] MEDS: PANTOprazole 40 MG in SYRINGE 0 ML IV SCH (11:12)
--- NOTE | 2021-01-06 11:43 | Surgery Progress Note ---
Date of Service January 06, 2021 Assessment & Plan (1) Diverticulitis of intestine with abscess: Plan: 75 year-old female with 4 day history of lower abdominal pain and diarrhea. CT scan showing sigmoid diverticulitis with intramural abscess measuring 12 mm. leukocytosis resolved abdomen is soft, only tender on deep palpation in LLQ stable and improving Plan: okay for clear liquids continue IV Zosyn will need prolonged course of abx, 14 day total given abscess will need colonoscopy in 6 -[address] Olmos has seen patient on rounds and agrees with plan above. Admission and Anticipated Discharge Date Admission Date: January 04, 2021 Subjective did not feel well this morning, blood sugar dropped to 50. [place] better after apple juice. no abdominal pain still having loose stools no nausea, Protonix helped Physical Exam Constitutional: WD/WN, vitals as above no acute distress and not ill appearing Respiratory: normal respiratory effort; no respiratory distress, no labored breathing and no retractions Gastrointestinal (Abdomen): Inspection/Auscultation: abdomen normal to inspection, + abdomen distended (mild) and normal bowel sounds (little hyperactive) Percussion/Palpation: + abdomen tender (LLQ on deep palpation), + guarding (voluntary guarding in LLQ on deep palpation) and abdomen soft; abdomen not rigid Skin: no rashes, warm and dry Psychiatric: A+Ox3, euthymic affect Results & Data ([facility]) Vital Signs (Past 12 Hours) Vital Signs Temp Pulse Resp BP Pulse Ox 01/06/21 08:07 36.4 C L 68 18 135/74 98 Laboratory Results 01/06/21 01/06/21 01/06/21 Range/Units 08:10 07:49 07:25 WBC (4.8-10.8) K/uL RBC (4.2-5.4) M/uL Hgb (12.0-16.0) g/dL Hct (37-47) % MCV (80-100) fL MCH (25-34) pg MCHC (32-36) g/dL RDW Std Deviation (36.4-46.3) fL RDW Coeff of Rita (11.5-14.5) % Plt Count (130-400) K/uL MPV (7.4-10.4) fL Immature Gran % (Auto) % Neut % (Auto) % Lymph % (Auto) % [place] % (Auto) % Eos % (Auto) % Baso % (Auto) % Neut # (Auto) (1.4-6.5) K/uL Lymph # (Auto) (1.2-3.4) K/uL [place] # (Auto) (0.11-0.59) K/uL Eos # (Auto) (0-0.5) K/uL Baso # (Auto) (0-0.2) K/uL Immature Gran # (Auto) (0.00-0.02) K/uL Sodium (136-145) mmol/L Potassium (3.5-5.1) mmol/L Chloride (98-107) mmol/L Carbon Dioxide (21-32) mmol/L Anion Gap (3-11) BUN (7-18) mg/dl Creatinine (0.6-1.2) mg/dl Est Cr Clr Drug Dosing ml/min Est GFR ( Amer) ml/min Est GFR (Non-Af Amer) ml/min BUN/Creatinine Ratio (10-20) Glucose (70-99) mg/dl POC Glucose 88 60 L* 53 L* (70-99) mg/dl Calcium (8.5-10.1) mg/dl Magnesium (1.8-2.4) mg/dl 01/06/21 01/06/21 Range/Units 07:01 05:37 WBC 5.65 (4.8-10.8) K/uL RBC 3.34 L (4.2-5.4) M/uL Hgb 11.1 L (12.0-16.0) g/dL Hct 33.7 L (37-47) % MCV 100.9 H (80-100) fL MCH 33.2 (25-34) pg MCHC 32.9 (32-36) g/dL RDW Std Deviation 45.6 (36.4-46.3) fL RDW Coeff of Rita 12.3 (11.5-14.5) % Plt Count 178 (130-400) K/uL MPV 11.0 H (7.4-10.4) fL Immature Gran % (Auto) 0.0 % Neut % (Auto) 54.7 % Lymph % (Auto) 32.9 % [place] % (Auto) 9.6 % Eos % (Auto) 2.3 % Baso % (Auto) 0.5 % Neut # (Auto) 3.09 (1.4-6.5) K/uL Lymph # (Auto) 1.86 (1.2-3.4) K/uL [place] # (Auto) 0.54 (0.11-0.59) K/uL Eos # (Auto) 0.13 (0-0.5) K/uL Baso # (Auto) 0.03 (0-0.2) K/uL Immature Gran # (Auto) 0.00 (0.00-0.02) K/uL Sodium 141 (136-145) mmol/L Potassium 3.6 (3.5-5.1) mmol/L Chloride 110 H (98-107) mmol/L Carbon Dioxide 21 (21-32) mmol/L Anion Gap 10.0 (3-11) BUN 12 (7-18) mg/dl Creatinine 0.52 L (0.6-1.2) mg/dl Est Cr Clr Drug Dosing 80.9 ml/min Est GFR ( Amer) 107.6 ml/min Est GFR (Non-Af Amer) 92.8 ml/min BUN/Creatinine Ratio 22.8 H (10-20) Glucose 51 L* (70-99) mg/dl POC Glucose (70-99) mg/dl Calcium 8.6 (8.5-10.1) mg/dl Magnesium 1.8 (1.8-2.4) mg/dl
[2021-01-06 13:22] LABS: Appearance Urine Clear (Clear); Bilirubin Urine Negative (Negative); Blood Urine Negative (Negative); Color Urine Yellow; Glucose Urine UA Negative (Negative); Ketones Urine 1+ (Negative); Leukocyte Esterase Urine Negative (Negative); Nitrite Urine Negative (Negative); Protein Urine Negative (Negative); Specific Gravity Urine 1.003 (1.000-1.030); Urobilinogen Urine Negative (Negative); pH Urine 5.5 (4.5-7.5)
--- NOTE | 2021-01-06 17:46 | Hospitalist Progress Note ---
Date of Service January 06, 2021 Assessment & Plan (1) Diverticulitis of intestine with abscess: Plan: Severe, of proximal Sigmoid colon, seen on CT w/ 12mm intramural abscess. Surgery consulted- appreciate assistance monitoring clinical course Pain improving, nausea improved and diarrhea persists but improved Tolerating clears with only minimal increased pain this AM -continue clear liquids today, consider full liquids tomorrow -continue Zosyn- 3.375 GM IV q8 and eventually convert to po abx x 14 day course -continue IVFs but reduce rate to 70mL/hr -will need colonoscopy in 6-8 weeks, however patient fearful of this because of her h/o PAT and reports having PAT with any anal stimulation-would need to discuss with her Laboratory Miller. COuld consider alternative imaging ie CT abd/pel with IV/po contrast or CT colonography, etc. -continue pain control prn -of note, did start taking Ivermectin 3 days before symptoms started-would recommend discontinuation of this (2) Cardiomyopathy, nonischemic: Plan: Remote history of Takotsubo cardiomyopathy. Per cardiology note from 11/01/2020, EF had normalized by 2017. Presently appears euvolemic on exam. - continue metoprolol succ 50 mg PO qd - continue asa daily - continue atorvastatin 20 mg po qhs (3) Coronary artery disease: Plan: Non-obstructive by cath in 2017- 50% LAD stenosis no acute issues, no CP - Continue ASA, statin (4) Gastro-esophageal reflux: Plan: Protonix IV while NPO-convert to po PPI for tomorrow has a h/o multiple peptic ulcers with GIB requiring transfusion in past that were stress-induced (5) Hypercholesterolemia: Plan: statin (6) Mitral valve prolapse: Plan: Appears euvolemic on exam - as above with BB - non limiting symptoms (7) PAT (paroxysmal atrial tachycardia): Plan: Controlled while on BB (8) Hypoglycemia: Plan: had glucose in 50s this AM while NPO, resolved with juice continue clears Plan: DVT proph-heparin SQ Dispo-continued stay, slowly improving, expect 2 more days Admission and Anticipated Discharge Date Admission Date: January 04, 2021 Anticipated date of discharge: 01/08/21 Subjective Feeling much better. Had some increased pain in lower abdomen this AM after drinking apple juice but since then had clears for lunch and no pain. Had hypoglycemia this AM that resolved with juice. Had 4 episodes of watery stool, no blood. Denies CP or SOB. Was worried she was getting a UTI so UA checked and was neg for infection. I discussed her care with Surgery PA Review of Systems Review of Systems: All systems reviewed & are unremarkable except as noted in HPI & below Physical Exam Constitutional: WD/WN, vitals as above Eyes: + anicteric sclerae Neck: trachea midline, no thyromegaly Respiratory: normal respiratory effort, lungs clear to auscultation Cardiovascular: RRR, no murmur, no edema Chest (Breasts): Chest: normal inspection of chest Gastrointestinal (Abdomen): Inspection/Auscultation: normal bowel sounds; abdomen not distended Percussion/Palpation: + abdomen tender (mild in LLQ without guarding) and abdomen soft; no guarding Musculoskeletal: Extremities: extremities normal to inspection; no cyanosis and no clubbing Skin: no rashes, warm and dry Neurologic: moves all extremities and awake; no focal motor deficits Psychiatric: A+Ox3, euthymic affect Lymphatic: no lymphedema Results & Data Results & Data ([facility]) Vital Signs (Past 12 Hours) Vital Signs Temp Pulse Resp BP Pulse Ox 01/06/21 14:49 36.9 C 68 16 125/74 97 01/06/21 08:07 36.4 C L 68 18 135/74 98 Laboratory Results 01/06/21 01/06/21 01/06/21 Range/Units 13:08 08:10 07:49 WBC (4.8-10.8) K/uL RBC (4.2-5.4) M/uL Hgb (12.0-16.0) g/dL Hct (37-47) % MCV (80-100) fL MCH (25-34) pg MCHC (32-36) g/dL RDW Std Deviation (36.4-46.3) fL RDW Coeff of Rita (11.5-14.5) % Plt Count (130-400) K/uL MPV (7.4-10.4) fL Immature Gran % (Auto) % Neut % (Auto) % Lymph % (Auto) % [place] % (Auto) % Eos % (Auto) % Baso % (Auto) % Neut # (Auto) (1.4-6.5) K/uL Lymph # (Auto) (1.2-3.4) K/uL [place] # (Auto) (0.11-0.59) K/uL Eos # (Auto) (0-0.5) K/uL Baso # (Auto) (0-0.2) K/uL Immature Gran # (Auto) (0.00-0.02) K/uL Sodium (136-145) mmol/L Potassium (3.5-5.1) mmol/L Chloride (98-107) mmol/L Carbon Dioxide (21-32) mmol/L Anion Gap (3-11) BUN (7-18) mg/dl Creatinine (0.6-1.2) mg/dl Est Cr Clr Drug Dosing ml/min Est GFR ( Amer) ml/min Est GFR (Non-Af Amer) ml/min BUN/Creatinine Ratio (10-20) Glucose (70-99) mg/dl POC Glucose 88 60 L* (70-99) mg/dl Calcium (8.5-10.1) mg/dl Magnesium (1.8-2.4) mg/dl Urine Color Yellow Urine Appearance Clear (Clear) Urine pH 5.5 (4.5-7.5) Ur Specific [place] 1.003 (1.000-1.030) Urine Protein Negative (Negative) Urine Glucose (UA) Negative (Negative) Urine Ketones 1+ H (Negative) Urine Blood Negative (Negative) Urine Nitrite Negative (Negative) Urine Bilirubin Negative (Negative) Urine Urobilinogen Negative (Negative) Ur Leukocyte Esterase Negative (Negative) 01/06/21 01/06/21 01/06/21 Range/Units 07:25 07:01 05:37 WBC 5.65 (4.8-10.8) K/uL RBC 3.34 L (4.2-5.4) M/uL Hgb 11.1 L (12.0-16.0) g/dL Hct 33.7 L (37-47) % MCV 100.9 H (80-100) fL MCH 33.2 (25-34) pg MCHC 32.9 (32-36) g/dL RDW Std Deviation 45.6 (36.4-46.3) fL RDW Coeff of [place] 12.3 (11.5-14.5) % Plt Count 178 (130-400) K/uL MPV 11.0 H (7.4-10.4) fL Immature Gran % (Auto) 0.0 % Neut % (Auto) 54.7 % Lymph % (Auto) 32.9 % [place] % (Auto) 9.6 % Eos % (Auto) 2.3 % Baso % (Auto) 0.5 % Neut # (Auto) 3.09 (1.4-6.5) K/uL Lymph # (Auto) 1.86 (1.2-3.4) K/uL [place] # (Auto) 0.54 (0.11-0.59) K/uL Eos # (Auto) 0.13 (0-0.5) K/uL Baso # (Auto) 0.03 (0-0.2) K/uL Immature Gran # (Auto) 0.00 (0.00-0.02) K/uL Sodium 141 (136-145) mmol/L Potassium 3.6 (3.5-5.1) mmol/L Chloride 110 H (98-107) mmol/L Carbon Dioxide 21 (21-32) mmol/L Anion Gap 10.0 (3-11) BUN 12 (7-18) mg/dl Creatinine 0.52 L (0.6-1.2) mg/dl Est Cr Clr Drug Dosing 80.9 ml/min Est GFR ( Amer) 107.6 ml/min Est GFR (Non-Af Amer) 92.8 ml/min BUN/Creatinine Ratio 22.8 H (10-20) Glucose 51 L* (70-99) mg/dl POC Glucose 53 L* (70-99) mg/dl Calcium 8.6 (8.5-10.1) mg/dl Magnesium 1.8 (1.8-2.4) mg/dl Urine Color Urine Appearance (Clear) Urine pH (4.5-7.5) Ur Specific [place] (1.000-1.030) Urine Protein (Negative) Urine Glucose (UA) (Negative) Urine Ketones (Negative) Urine Blood (Negative) Urine Nitrite (Negative) Urine Bilirubin (Negative) Urine Urobilinogen (Negative) Ur Leukocyte Esterase (Negative) PG Care Time/CCT Total # of Minutes Spent Total Time Spent with Patient: Total time spent is greater than 50% in coordination of care (as documented) at patient's floor/unit and/or counseling patient: Coding Level of Care Code 98288 Subseq Hosp Care Lvl 2 Diagnoses Diverticulitis of intestine with abscess K57.80 Cardiomyopathy, nonischemic I42.8 Coronary artery disease I25.10 Coronary Disease-Associated Artery/Lesion type: [place] artery [place] vs. transplanted heart: [place] heart Associated angina: without angina Gastro-esophageal reflux K21.9 Esophagitis presence: without esophagitis Hypercholesterolemia E78.00 Mitral valve prolapse I34.1 PAT (paroxysmal atrial tachycardia) I47.1 Hypoglycemia E16.2 (1) Coronary artery disease Coronary Disease-Associated Artery/Lesion type: [place] artery [place] vs. transplanted heart: [place] heart Associated angina: without angina Qualified Code(s): I25.10 - Atherosclerotic heart disease of [place] coronary artery without angina pectoris (2) Gastro-esophageal reflux Esophagitis presence: without esophagitis Qualified Code(s): K21.9 - Gastro- esophageal reflux disease without esophagitis
[2021-01-06] MEDS: ATORVASTATIN 20 MG TAB PO SCH (20:04)
[2021-01-06] MEDS: METOPROLOL SUCC 50MG EXT REL TAB PO SCH (20:04)
[2021-01-06] MEDS: ASPIRIN 81 MG ECTAB PO SCH (20:04)
[2021-01-07] MEDS: PIPERACILLIN/TAZOBACTAM 3.375 GM in DEXTROSE 5% 100 ML IV SCH ×3 (04:00→19:47)
[2021-01-07] MEDS: HEPARIN SOD 5,000 UNIT/0.5 ML VIAL SQ SCH ×3 (04:01→21:11)
[2021-01-07 07:01] LABS: Basophils # (auto) 0.03 K/uL (0-0.2); Basophils % (auto) 0.7 %; Eosinophils # (auto) 0.22 K/uL (0-0.5); Eosinophils % (auto) 5.3 %; Hematocrit (blood only) 33.3 % (37-47); Hemoglobin 11.3 g/dL (12.0-16.0); Immature Granulocytes # (auto) 0.01 K/uL (0.00-0.02); Immature Granulocytes % (auto) 0.2 %; Lymphocytes # (auto) 1.89 K/uL (1.2-3.4); Lymphocytes % (auto) 45.3 %; Mean Corpuscular Hemoglobin 33.4 pg (25-34); Mean Corpuscular Hgb Conc 33.9 g/dL (32-36); Mean Corpuscular Volume 98.5 fL (80-100); Monocytes % (auto) 9.6 %; Neutrophils # (auto) 1.62 K/uL (1.4-6.5); Neutrophils % (auto) 38.9 %; Platelet Count 172 K/uL (130-400); RDW Coefficient of Variation 12.4 % (11.5-14.5); RDW Standard Deviation 44.3 fL (36.4-46.3); Red Blood Count 3.38 M/uL (4.2-5.4); White Blood Count 4.17 K/uL (4.8-10.8)
[2021-01-07] MEDS: PANTOprazole 40 MG TAB PO SCH (07:36)
[2021-01-07] MEDS: LACTATED RINGER'S 1,000 ML IV SCH ×2 (07:36→20:54)
[2021-01-07] MEDS: CHOLECALCIFEROL 1,000 UNITS 25 MCG TAB PO SCH ×2 (07:37→20:54)
[2021-01-07 07:51] LABS: BUN Creatinine Ratio 6.3 (10-20); Calcium 8.9 mg/dl (8.5-10.1); Creatinine Clr Calc Pharmacy 65.8 ml/min; Est GFR (African American) 100.5 ml/min; Est GFR (Non-African American) 86.7 ml/min; Magnesium 1.9 mg/dl (1.8-2.4); Potassium 3.9 mmol/L (3.5-5.1)
--- NOTE | 2021-01-07 11:10 | Surgery Progress Note ---
Date of Service January 07, 2021 Assessment & Plan (1) Diverticulitis of intestine with abscess: Plan: 75 year-old female with 4 day history of lower abdominal pain and diarrhea. CT scan showing sigmoid diverticulitis with intramural abscess measuring 12 mm. leukocytosis resolved abdomen is soft, only tender on deep palpation in LLQ stable and improving Plan: okay to advance diet to full liquids continue IV Zosyn covert to PO abx for total of 14 days of abx (IV and oral) will need colonoscopy in 6 -8 weeks, highly recommended as patient has never had one before follow-up with general surgery prn our services signing off, please call with questions or concerns Dr. Olmos has seen and examined pt, agrees with above. Admission and Anticipated Discharge Date Admission Date: January 04, 2021 Subjective feeling about the same having more loose stools tolerating clear liquids, no n/v no increase in pain with liquids lower abdominal discomfort Physical Exam Constitutional: WD/WN, vitals as above no acute distress and not ill appearing Respiratory: normal respiratory effort; no respiratory distress, no labored breathing and no retractions Gastrointestinal (Abdomen): Inspection/Auscultation: abdomen normal to inspection; abdomen not distended Percussion/Palpation: + abdomen tender (llq and suprapubic region) and abdomen soft; no guarding and abdomen not rigid Skin: no rashes, warm and dry Psychiatric: A+Ox3, euthymic affect Results & Data ([facility]) Vital Signs (Past 12 Hours) Vital Signs Temp Pulse Resp BP Pulse Ox 01/07/21 07:38 36.6 C 56 L 16 115/68 98 Laboratory Results 01/07/21 01/07/21 01/06/21 Range/Units 06:25 06:25 13:08 WBC 4.17 L (4.8-10.8) K/uL RBC 3.38 L (4.2-5.4) M/uL Hgb 11.3 L (12.0-16.0) g/dL Hct 33.3 L (37-47) % MCV 98.5 (80-100) fL MCH 33.4 (25-34) pg MCHC 33.9 (32-36) g/dL RDW Std Deviation 44.3 (36.4-46.3) fL RDW Coeff of [place] 12.4 (11.5-14.5) % Plt Count 172 (130-400) K/uL MPV 11.0 H (7.4-10.4) fL Immature Gran % (Auto) 0.2 % Neut % (Auto) 38.9 % Lymph % (Auto) 45.3 % [place] % (Auto) 9.6 % Eos % (Auto) 5.3 % Baso % (Auto) 0.7 % Neut # (Auto) 1.62 (1.4-6.5) K/uL Lymph # (Auto) 1.89 (1.2-3.4) K/uL [place] # (Auto) 0.40 (0.11-0.59) K/uL Eos # (Auto) 0.22 (0-0.5) K/uL Baso # (Auto) 0.03 (0-0.2) K/uL Immature Gran # (Auto) 0.01 (0.00-0.02) K/uL Sodium 145 (136-145) mmol/L Potassium 3.9 (3.5-5.1) mmol/L Chloride 111 H (98-107) mmol/L Carbon Dioxide 30 (21-32) mmol/L Anion Gap 4.0 (3-11) BUN 4 L D (7-18) mg/dl Creatinine 0.64 (0.6-1.2) mg/dl Est Cr Clr Drug Dosing 65.8 ml/min Est GFR ( Amer) 100.5 ml/min Est GFR (Non-Af Amer) 86.7 ml/min BUN/Creatinine Ratio 6.3 L (10-20) Glucose 87 (70-99) mg/dl Calcium 8.9 (8.5-10.1) mg/dl Magnesium 1.9 (1.8-2.4) mg/dl Urine Color Yellow Urine Appearance Clear (Clear) Urine pH 5.5 (4.5-7.5) Ur Specific [place] 1.003 (1.000-1.030) Urine Protein Negative (Negative) Urine Glucose (UA) Negative (Negative) Urine Ketones 1+ H (Negative) Urine Blood Negative (Negative) Urine Nitrite Negative (Negative) Urine Bilirubin Negative (Negative) Urine Urobilinogen Negative (Negative) Ur Leukocyte Esterase Negative (Negative)
--- NOTE | 2021-01-07 12:51 | Hospitalist Progress Note ---
Date of Service January 07, 2021 Assessment & Plan (1) Diverticulitis of intestine with abscess: Plan: Severe, of proximal Sigmoid colon, seen on CT w/ 12mm intramural abscess. Surgery consulted- appreciate assistance monitoring clinical course Pain improving but persists, tenderness less but still present, nausea improved. Today diarrhea is increased-watery Afebrile, no leukocytosis, lytes normal Advance to low fiber diet -continue Zosyn- 3.375 GM IV q8 and eventually convert to po abx x 14 day course -continue IVFs at 70mL/hr -will need colonoscopy in 6-8 weeks, however patient fearful of this because of her h/o PAT and reports having PAT with any anal stimulation-would need to discuss with her Inspector Conveyor Line. COuld consider alternative imaging ie CT abd/pel with IV/po contrast or CT colonography, etc. -continue pain control prn -of note, did start taking Ivermectin 3 days before symptoms started-would recommend discontinuation of this (2) Cardiomyopathy, nonischemic: Plan: Remote history of Takotsubo cardiomyopathy. Per cardiology note from 11/01/2020, EF had normalized by 2017. Presently appears euvolemic on exam. - continue metoprolol succ 50 mg PO qd - continue asa daily - continue atorvastatin 20 mg po qhs (3) Coronary artery disease: Plan: Non-obstructive by cath in 2017- 50% LAD stenosis no acute issues, no CP - Continue ASA, statin (4) Gastro-esophageal reflux: Plan: Protonix has a h/o multiple peptic ulcers with GIB requiring transfusion in past that were stress-induced (5) Hypercholesterolemia: Plan: statin (6) Mitral valve prolapse: Plan: Appears euvolemic on exam - as above with BB - non limiting symptoms (7) PAT (paroxysmal atrial tachycardia): Plan: Controlled while on BB (8) Hypoglycemia: Plan: had glucose in 50s in AM while NPO, resolved with juice Now on a diet and resolved Plan: DVT proph-heparin SQ Dispo-continued stay, slowly improving, possible discharge tomorrow Admission and Anticipated Discharge Date Admission Date: January 04, 2021 Subjective Pt was feeling ok but had more apple juice for breakfast and now has some abdominal discomfort lower abd again. No nausea. Had 14 episodes of watery diarrhea with small pieces of stool since last night. Denies CP, SOB, no other concerns. In fact, has her hair in curlers and is blow drying her curlers sitting on side of bed when I came in. Review of Systems Review of Systems: All systems reviewed & are unremarkable except as noted in HPI & below Physical Exam Constitutional: WD/WN, vitals as above Eyes: + anicteric sclerae Neck: trachea midline, no thyromegaly Respiratory: normal respiratory effort, lungs clear to auscultation Cardiovascular: RRR, no murmur, no edema Chest (Breasts): Chest: normal inspection of chest Gastrointestinal (Abdomen): Inspection/Auscultation: normal bowel sounds; abdomen not distended Percussion/Palpation: + abdomen tender (mild in LLQ without guarding) and abdomen soft; no guarding Musculoskeletal: Extremities: extremities normal to inspection; no cyanosis and no clubbing Skin: no rashes, warm and dry Neurologic: moves all extremities and awake; no focal motor deficits Psychiatric: A+Ox3, euthymic affect Lymphatic: no lymphedema Results & Data Results & Data ([facility]) Vital Signs (Past 12 Hours) Vital Signs Temp Pulse Resp BP Pulse Ox 01/07/21 07:38 36.6 C 56 L 16 115/68 98 Laboratory Results 01/07/21 01/07/21 01/06/21 Range/Units 06:25 06:25 13:08 WBC 4.17 L (4.8-10.8) K/uL RBC 3.38 L (4.2-5.4) M/uL Hgb 11.3 L (12.0-16.0) g/dL Hct 33.3 L (37-47) % MCV 98.5 (80-100) fL MCH 33.4 (25-34) pg MCHC 33.9 (32-36) g/dL RDW Std Deviation 44.3 (36.4-46.3) fL RDW Coeff of Rita 12.4 (11.5-14.5) % Plt Count 172 (130-400) K/uL MPV 11.0 H (7.4-10.4) fL Immature Gran % (Auto) 0.2 % Neut % (Auto) 38.9 % Lymph % (Auto) 45.3 % [place] % (Auto) 9.6 % Eos % (Auto) 5.3 % Baso % (Auto) 0.7 % Neut # (Auto) 1.62 (1.4-6.5) K/uL Lymph # (Auto) 1.89 (1.2-3.4) K/uL [place] # (Auto) 0.40 (0.11-0.59) K/uL Eos # (Auto) 0.22 (0-0.5) K/uL Baso # (Auto) 0.03 (0-0.2) K/uL Immature Gran # (Auto) 0.01 (0.00-0.02) K/uL Sodium 145 (136-145) mmol/L Potassium 3.9 (3.5-5.1) mmol/L Chloride 111 H (98-107) mmol/L Carbon Dioxide 30 (21-32) mmol/L Anion Gap 4.0 (3-11) BUN 4 L D (7-18) mg/dl Creatinine 0.64 (0.6-1.2) mg/dl Est Cr Clr Drug Dosing 65.8 ml/min Est GFR ( Amer) 100.5 ml/min Est GFR (Non-Af Amer) 86.7 ml/min BUN/Creatinine Ratio 6.3 L (10-20) Glucose 87 (70-99) mg/dl Calcium 8.9 (8.5-10.1) mg/dl Magnesium 1.9 (1.8-2.4) mg/dl Urine Color Yellow Urine Appearance Clear (Clear) Urine pH 5.5 (4.5-7.5) Ur Specific [place] 1.003 (1.000-1.030) Urine Protein Negative (Negative) Urine Glucose (UA) Negative (Negative) Urine Ketones 1+ H (Negative) Urine Blood Negative (Negative) Urine Nitrite Negative (Negative) Urine Bilirubin Negative (Negative) Urine Urobilinogen Negative (Negative) Ur Leukocyte Esterase Negative (Negative) PG Care Time/CCT Total # of Minutes Spent Total Time Spent with Patient: Total time spent is greater than 50% in coordination of care (as documented) at patient's floor/unit and/or counseling patient: Coding Level of Care Code 42331 Subseq Hosp Care Lvl 2 Diagnoses Diverticulitis of intestine with abscess K57.80 Cardiomyopathy, nonischemic I42.8 Coronary artery disease I25.10 Coronary Disease-Associated Artery/Lesion type: [place] artery [place] vs. transplanted heart: [place] heart Associated angina: without angina Gastro-esophageal reflux K21.9 Esophagitis presence: without esophagitis Hypercholesterolemia E78.00 Mitral valve prolapse I34.1 PAT (paroxysmal atrial tachycardia) I47.1 Hypoglycemia E16.2 (1) Coronary artery disease Coronary Disease-Associated Artery/Lesion type: [place] artery [place] vs. transplanted heart: [place] heart Associated angina: without angina Qualified Code(s): I25.10 - Atherosclerotic heart disease of [place] coronary artery without angina pectoris (2) Gastro-esophageal reflux Esophagitis presence: without esophagitis Qualified Code(s): K21.9 - Gastro- esophageal reflux disease without esophagitis
[2021-01-07] MEDS: ATORVASTATIN 20 MG TAB PO SCH (20:54)
[2021-01-07] MEDS: METOPROLOL SUCC 50MG EXT REL TAB PO SCH (20:54)
[2021-01-07] MEDS: ASPIRIN 81 MG ECTAB PO SCH (20:54)
[2021-01-08] MEDS: ACETAMINOPHEN 325 MG TAB PO PRN
[2021-01-08] MEDS: PIPERACILLIN/TAZOBACTAM 3.375 GM in DEXTROSE 5% 100 ML IV SCH ×2 (04:32→11:35)
[2021-01-08] MEDS: HEPARIN SOD 5,000 UNIT/0.5 ML VIAL SQ SCH ×2 (05:07→15:21)
[2021-01-08 06:29] LABS: Basophils # (auto) 0.06 K/uL (0-0.2); Basophils % (auto) 1.1 %; Eosinophils # (auto) 0.21 K/uL (0-0.5); Hematocrit (blood only) 32.2 % (37-47); Hemoglobin 10.7 g/dL (12.0-16.0); Lymphocytes # (auto) 2.28 K/uL (1.2-3.4); Lymphocytes % (auto) 43.2 %; Mean Corpuscular Hemoglobin 32.8 pg (25-34); Mean Corpuscular Hgb Conc 33.2 g/dL (32-36); Mean Corpuscular Volume 98.8 fL (80-100); Mean Platelet Volume 10.6 fL (7.4-10.4); Monocytes # (auto) 0.46 K/uL (0.11-0.59); Monocytes % (auto) 8.7 %; Neutrophils # (auto) 2.27 K/uL (1.4-6.5); Platelet Count 169 K/uL (130-400); RDW Coefficient of Variation 12.4 % (11.5-14.5); RDW Standard Deviation 44.2 fL (36.4-46.3); Red Blood Count 3.26 M/uL (4.2-5.4); White Blood Count 5.28 K/uL (4.8-10.8)
[2021-01-08 07:01] LABS: BUN Creatinine Ratio 6.3 (10-20); Calcium 8.6 mg/dl (8.5-10.1); Creatinine Clr Calc Pharmacy 61.9 ml/min; Est GFR (African American) 98.5 ml/min; Magnesium 1.7 mg/dl (1.8-2.4); Potassium 3.6 mmol/L (3.5-5.1)
[2021-01-08 08:01] VITALS: BP 141/81; TEMP 98.2; O2SAT 94
[2021-01-08] MEDS: CHOLECALCIFEROL 1,000 UNITS 25 MCG TAB PO SCH (09:06)
[2021-01-08] MEDS: PANTOprazole 40 MG TAB PO SCH (09:06)
[2021-01-08] MEDS: LACTATED RINGER'S 1,000 ML IV SCH (10:58)
[2021-01-08] MEDS ORDERED: MAGNESIUM SULFATE / D5W 1 GM/100 ML BAG IV ONE (11:30)
--- NOTE | 2021-01-08 12:28 | Discharge Summary ---
Date of Service January 08, 2021 Admission HPI Per Admitting Provider 75 YOF with past medical history of: NICM, Palpitations, CAD, Takatsubo(2017), HLD, Mitral valve prolapse, PAT, GERD. Patient reports to the EMD today for 4 days of abdominal pain, fatigue, and diarrhea. She has recently started Ivermectin, Zinc, and increased her Vitamin D for COVID prevention. Patient states that originally started with sharp stabbing pain to lower midline abdomen that just didn't improve. She has noticed increase in mucousy, mostly water diarrhea since that time and no blood. She endorses eating some corn over the weekend and some crackers. She endorses that she has also had some mild fevers and chills that also accompanied this. She denies any other symptoms, and no radiation of the pain. She has not noticed any change to her urinary symptoms or pattern. In the EMD she had routine labs done, ECG, and CT scan of her abdomen. CT scan of her abdomen did show a 12mm intraluminal abscess of the sigmoid colon, without free air, but with trace free fluid in the gutters and pelvis. Surgery was notified by the EMD and will continue to follow her through her admission. Patient was started on Zosyn in the EMD and will continue. Patient will be admitted for IV antibiotics, serial abdominal exams, monitoring of her symptoms, and surgical consultation as above. Will hold her COVID prophylaxis medications to include her Ivermectin, fluvoxamine, will contiinue her budesonide and will add albuterol for any dyspnea/wheeze- unsure of her need for theese. Principal Diagnosis Acute sigmoid diverticulitis with abscess Discharge Exam Constitutional WD/WN, vitals as above Eyes + anicteric sclerae Neck trachea midline, no thyromegaly Respiratory normal respiratory effort, lungs clear to auscultation Cardiovascular RRR, no murmur, no edema Chest (Breasts) Chest: normal inspection of chest Gastrointestinal (Abdomen) normal bowel sounds, soft, nontender, no hepatosplenomegaly Musculoskeletal Extremities: extremities normal to inspection; no cyanosis and no clubbing Skin no rashes, warm and dry Neurologic moves all extremities and awake; no focal motor deficits Psychiatric A+Ox3, euthymic affect Lymphatic no lymphedema Discharge Data Allergies Allergy/AdvReac Type Severity Reaction Status Date / Time epinephrine Allergy Mild Verified 01/04/21 13:06 lidocaine Allergy Verified 01/04/21 13:06 Consultations 01/04/21 12:53 Consult General Surgery Stat 01/04/21 13:24 ED Decision to Admit Stat 01/04/21 16:08 Consult General Surgery Routine Ordered Studies 01/04/21 10:48 CT abd pelvis IV con only Stat Hospital Course (1) Diverticulitis of intestine with abscess: Severe, of proximal Sigmoid colon, seen on CT w/ 12mm intramural abscess. Surgery consulted- appreciate assistance monitoring clinical course Pain and diarrhea resolved, torri low fiber diet, ambulating, no nausea, remains afebrile, doing very well Was treated with IV ZOsyn, bowel rest, and IVFs -dc to home on Cipro and Flagyl to finish out 14 day course low fiber diet x 2 weeks with gradual increase to fiber -will need colonoscopy in 6-8 weeks, however patient fearful of this because of her h/o PAT and reports having PAT with any anal stimulation-would need to discuss with her Marine Engine Driver. COuld consider alternative imaging ie CT abd/pel with IV/po contrast or CT colonography, etc. WIll have her f/u with her GI doctor in 6 weeks -of note, did start taking Ivermectin 3 days before symptoms started-would recommend discontinuation of this (2) Cardiomyopathy, nonischemic: Remote history of Takotsubo cardiomyopathy. Per cardiology note from 11/01/2020, EF had normalized by 2017. Presently appears euvolemic on exam. - continue metoprolol succ 50 mg PO qd - continue asa daily - continue atorvastatin 20 mg po qhs (3) Coronary artery disease: Non-obstructive by cath in 2017- 50% LAD stenosis no acute issues, no CP - Continue ASA, statin (4) Gastro-esophageal reflux: Protonix given while hospitalized, but no need to continue on at home has a h/o multiple peptic ulcers with GIB requiring transfusion in past that were stress-induced (5) Hypercholesterolemia: statin (6) Mitral valve prolapse: Appears euvolemic on exam - as above with BB - non limiting symptoms (7) PAT (paroxysmal atrial tachycardia): Controlled while on BB (8) Hypoglycemia: had glucose in 50s in AM while NPO, resolved with juice Now on a diet and resolved DVT proph-heparin SQ Dispo-dc to home today Total Time Total Time Spent Total Time Spent (In Minutes): 35 min Discharge Plan Discharge Items Patient Disposition: Home - Self-Care Reason For Visit: DIVERTICULITIS Discharge Diagnosis: Acute diverticulitis with abscess Condition on Discharge: Good Activity: As commented below Lifting: Gradually increase as tolerated Bathing: No limitations Exercise/Sports: Gradually increase as tolerated Weightbearing: Full weightbearing Non-emergency contact: Primary Care Provider and Brake Coupler Dinkey Call non-emergency contact if: you have any medication questions, your symptoms worsen, your pain is not controlled, your pain is worsening, your pain is concerning for you and you have a fever Follow-up/Referrals: Orestes Fields DO [Physician] - (Call to schedule a hospital follow up appointment for acute diverticulitis within 6-8 weeks.) Satya Montilla III, CRNP [Primary Care Provider] - (Call to schedule a hospital follow up appointment in 1-2 weeks.) Diet: Low Fiber Diet Comment: low fiber x 2 weeks, then gradual addition of fiber back to diet Addtl Attending Provider Instructions: Please finish out the course of antibiotics for 9 more days. You will need a colonoscopy to assess the area of diverticulitis in 6-8 weeks after you heal to ensure there is not a colon cancer or other issue that caused your diverticulitis. Due to your history of tachycardia, it is recommended that you see your Marine Engine Driver for recommendations prior to undergoing anesthesia. Pending Studies at Discharge: No Stand-Alone Forms: [facility] Medications and DC Order Prescriptions: New acetaminophen 325 mg Tablet 650 mg PO Q6 PRN (Reason: pain) Qty: 20 RF: 0 ciprofloxacin HCl 500 mg tablet 500 mg PO BID Qty: 18 RF: 0 metronidazole 500 mg tablet 500 mg PO TID Qty: 27 RF: 0 Continued aspirin [Aspirin Low Dose] 81 mg tablet,delayed release (DR/EC) 81 mg PO HS Qty: 30 RF: 0 nitroglycerin [Nitrostat] 0.4 mg tablet, sublingual 0.4 mg sublingual UD RF: 0 cholecalciferol (vitamin D3) [Vitamin D3] 50 mcg (2,000 unit) Capsule 50 mcg PO BID RF: 0 atorvastatin [Lipitor] 20 mg tablet 20 mg PO HS RF: 0 metoprolol succinate [Toprol XL] 50 mg tablet extended release 24 hr 50 mg PO HS RF: 0 multivitamin [Super Multivitamin] Tablet 1 tab PO QAM RF: 0 Discontinued ivermectin [Stromectol] 3 mg tablet 12 mg PO WK RF: 0 budesonide [Pulmicort] 0.5 mg/2 mL suspension for nebulization 0.5 mg inhalation BID RF: 0 fluvoxamine 50 mg tablet 50 mg PO BID RF: 0 Discharge Orders: Discharge Order (Routine); Ordered 01/08/21 Ordered By: Fe Regalado Admission Data Admit Date/Time: 01/04/21 14:43 Attending Provider: Fe Regalado Admit Provider: Edward Hammonds Primary Care Provider: Satya Montilla III Other Providers: Debora Olmos ; Edward Hammonds Coding Level of Care Code D/C DAY MANAGEMENT >30 MINS Diagnoses Diverticulitis of intestine with abscess K57.80 Cardiomyopathy, nonischemic I42.8 Coronary artery disease I25.10 Coronary Disease-Associated Artery/Lesion type: [place] artery [place] vs. transplanted heart: [place] heart Associated angina: without angina Gastro-esophageal reflux K21.9 Esophagitis presence: without esophagitis Hypercholesterolemia E78.00 Mitral valve prolapse I34.1 PAT (paroxysmal atrial tachycardia) I47.1 Hypoglycemia E16.2
[2021-01-08 12:52] VITALS: PULSE 75
== END 2021-01-08 15:54 | disposition home or self-care (01) | DRG 392 ==
LOC: ED 10:16 → SUATTDRO 14:43 → 3N 14:43
DX: I25.2 Old myocardial infarction; E16.2 Hypoglycemia, unspecified; E78.00 Pure hypercholesterolemia, unspecified; K57.20 Diverticulitis of large intestine with perforation and abscess without bleeding; Z87.891 Personal history of nicotine dependence; I47.1 Supraventricular tachycardia; K21.9 Gastro-esophageal reflux disease without esophagitis; I34.1 Nonrheumatic mitral (valve) prolapse; I42.8 Other cardiomyopathies; Z79.82 Long term (current) use of aspirin; I25.10 Atherosclerotic heart disease of native coronary artery without angina pectoris